=== PATIENT | male | born 1955 | race Caucasian/White ===

== ENCOUNTER 2021-05-25 09:49 | Outpatient (REF) | payer OTHER, SELFPAY ==
[2021-05-25 12:01] LABS: PSA,Total (Free>4and<10) 5.46 ng/mL (0.00-4.00)
[2021-05-26 13:21] LABS: Free Prostate Spec Ag 1.2 ng/mL; Percent Free Prostate Spec Ag 26 % (calc) (>25); Prostate Specific Ag Total 4.6 ng/mL (< OR = 4.0)
== END 2021-05-25 09:50 | disposition home or self-care (01) ==
LOC: HO.LAB 09:49
PROVIDERS: PCP Nurse Practitioner Family; Visit Provider Urology
DX: Z12.5 Encounter for screening for malignant neoplasm of prostate (principal); R97.20 Elevated prostate specific antigen [PSA]
CPT/HCPCS: 36415; 84153; 84154

== ENCOUNTER → 2021-05-27 09:29 | Outpatient (BNVA) | payer OTHER, SELFPAY | PROVIDERS: Visit Provider Urology ==

== ENCOUNTER → 2021-08-11 12:57 | Outpatient (BNVA) | payer OTHER, SELFPAY | PROVIDERS: Visit Provider Urology | DX: N48.6 Induration penis plastica (principal); R97.20 Elevated prostate specific antigen [PSA]; N40.1 Benign prostatic hyperplasia with lower urinary tract symptoms; N13.8 Other obstructive and reflux uropathy | CPT/HCPCS: 51798; 99212 ==

== ENCOUNTER 2021-11-22 13:46 | Outpatient (REF) | payer OTHER, SELFPAY ==
[2021-11-22 16:07] LABS: PSA,Total (Free>4and<10) 2.76 ng/mL (0.00-4.00)
== END 2021-11-22 13:47 | disposition home or self-care (01) ==
LOC: HO.LAB 13:46
PROVIDERS: Visit Provider Urology
DX: N40.1 Benign prostatic hyperplasia with lower urinary tract symptoms (principal); N13.8 Other obstructive and reflux uropathy; Z12.5 Encounter for screening for malignant neoplasm of prostate
CPT/HCPCS: 36415; 84153

== ENCOUNTER → 2021-11-24 09:35 | Outpatient (BNVA) | payer OTHER, SELFPAY | PROVIDERS: PCP Nurse Practitioner Family; Visit Provider Urology ==

== ENCOUNTER 2022-02-16 14:12 | Outpatient (REF) | payer OTHER, SELFPAY ==
[2022-02-16 16:09] LABS: PSA,Total (Free>4and<10) 1.98 ng/mL (0.00-4.00)
== END 2022-02-16 14:13 | disposition home or self-care (01) ==
LOC: HO.LAB 14:12
PROVIDERS: PCP Nurse Practitioner Family; Visit Provider Urology
DX: N13.8 Other obstructive and reflux uropathy (principal); N40.1 Benign prostatic hyperplasia with lower urinary tract symptoms; Z12.5 Encounter for screening for malignant neoplasm of prostate
CPT/HCPCS: 36415; 84153

== ENCOUNTER → 2022-02-23 11:23 | Outpatient (BNVA) | payer OTHER, SELFPAY | PROVIDERS: PCP Nurse Practitioner Family; Visit Provider Urology | DX: N40.1 Benign prostatic hyperplasia with lower urinary tract symptoms (principal); N13.8 Other obstructive and reflux uropathy; R97.20 Elevated prostate specific antigen [PSA]; Z79.899 Other long term (current) drug therapy | CPT/HCPCS: 51798; 99212 ==

== ENCOUNTER 2022-05-22 10:59 | Outpatient (REF) | payer OTHER, SELFPAY ==
--- NOTE | ~2022-05-22 | US_ITS ---
EXAMINATION: US PELVIS LIMITED (BLADDER) CLINICAL INFORMATION: Poor urinary stream. COMPARISON: None TECHNIQUE: Real-time imaging of the bladder. FINDINGS: BLADDER: Bladder wall appears thickened and slightly trabeculated.. Bilateral ureteral jets are demonstrated. Prevoid bladder volume is 160 mL. Postvoid bladder volume is 46.6 mL. Prostate gland is enlarged and protrudes into the base of the bladder. The prostate volume is 53.7 mL, 5.2 x 3.8 x 5.1 cm. US/US bladder IMPRESSION: Slightly thickened trabeculated bladder wall. 47 mL post void bladder residual. Enlarged prostate gland that protrudes into the base of the bladder.
[2022-05-22 12:59] LABS: Prostate Specific Antigen 1.49 ng/mL (<0.05-4.0)
== END 2022-05-22 11:00 | disposition home or self-care (01) ==
LOC: HO.US 10:59
PROVIDERS: PCP Nurse Practitioner Family; Visit Provider Urology
DX: Z12.5 Encounter for screening for malignant neoplasm of prostate (principal); N13.8 Other obstructive and reflux uropathy; N40.1 Benign prostatic hyperplasia with lower urinary tract symptoms; R97.20 Elevated prostate specific antigen [PSA]; R39.12 Poor urinary stream
CPT/HCPCS: 36415; 76857; 84153

== ENCOUNTER → 2022-05-26 14:41 | Outpatient (BNVA) | payer OTHER, SELFPAY | PROVIDERS: PCP Nurse Practitioner Family; Visit Provider Urology | DX: N48.6 Induration penis plastica (principal); R97.20 Elevated prostate specific antigen [PSA]; R79.89 Other specified abnormal findings of blood chemistry | CPT/HCPCS: 99212 ==

== ENCOUNTER 2022-06-09 09:20 | Outpatient (REF) | payer OTHER, SELFPAY ==
[2022-06-09 10:41] LABS: Ferritin 90 ng/mL (20-250); PSA,Total (Free>4and<10) 1.64 ng/mL (0.00-4.00)
[2022-06-12 07:06] LABS: Follicle Stimulating Hormone 4.3 mIU/mL (1.6-8.0); Lutenizing Hormone 3.4 mIU/mL (1.6-15.2); Prolactin 3.3 ng/mL (2.0-18.0)
[2022-06-12 10:17] LABS: Sex Hormone Binding Globulin 98 nmol/L (22-77)
[2022-06-15 13:46] LABS: Testosterone, Free 241.8 pg/mL (35.0-155.0); Testosterone, Total 987 ng/dL (250-1100)
[2022-06-16 03:06] LABS: Estradiol Ultra Sensitive 35 pg/mL (< OR = 29)
== END 2022-06-09 09:21 | disposition home or self-care (01) ==
LOC: HO.LAB 09:20
PROVIDERS: PCP Nurse Practitioner Family; Visit Provider Urology
DX: Z12.5 Encounter for screening for malignant neoplasm of prostate (principal); E29.1 Testicular hypofunction; R79.89 Other specified abnormal findings of blood chemistry; N13.8 Other obstructive and reflux uropathy; N40.1 Benign prostatic hyperplasia with lower urinary tract symptoms; E11.9 Type 2 diabetes mellitus without complications
CPT/HCPCS: 36415; 82670; 82728; 83001; 83002; 84146; 84153; 84270; 84402; 84403

== ENCOUNTER 2022-08-14 13:58 | Outpatient (REF) | payer OTHER, SELFPAY ==
--- NOTE | ~2022-08-14 | US_ITS ---
EXAMINATION: US SCROTUM CLINICAL INFORMATION: Hydrocele, unspecified. COMPARISON: None TECHNIQUE: A sonogram of the scrotum was performed assessing chacko-scale appearance and color Doppler flow. Spectral Doppler analysis of the arterial and venous flow were performed in the testes bilaterally. FINDINGS: RIGHT: Right testicle measures 5.2 x 2.7 x 3.3 cm, volume 23.7 mL. No focal testicular parenchymal lesions are visualized. Prominent rete testis. Spectral Doppler analysis of the arterial and venous flow is normal in the right testis. Partially calcified appendix testis measuring 0.8 x 1.2 cm. Right epididymal head is normal in size. Small right hydrocele. No right varicocele is seen. Right epididymal Doppler flow is normal. LEFT: Left testicle measures 4.6 x 2.8 x 3.3 cm, volume 22.4 mL. Small 4 x 3 x 3 mm simple cyst in the left testicle. No other focal testicular parenchymal lesions are visualized. Prominent rete testis. Spectral Doppler analysis of the arterial and venous flow is normal in the left testis. Left epididymal head is enlarged. There is a 1.4 x 1.1 x 1.3 cm left epididymal head cyst. There is a small appendix epididymis. Small left hydrocele. No left varicocele is seen. Left epididymal Doppler flow is normal. US/US scrotum IMPRESSION: Small bilateral hydroceles. 0.8 x 1.2 cm partially calcified right appendix testis. 1.4 cm left epididymal head cyst. Small 3 x 4 mm left testicular cyst.
== END 2022-08-14 13:59 | disposition home or self-care (01) ==
LOC: HO.US 13:58
PROVIDERS: Visit Provider Urology
DX: N43.3 Hydrocele, unspecified (principal); R79.89 Other specified abnormal findings of blood chemistry
CPT/HCPCS: 76870

== ENCOUNTER 2022-08-15 10:05 | Outpatient (REF) | payer OTHER, SELFPAY ==
[2022-08-17 08:03] LABS: HCG Tumor Marker <3 mIU/mL (<5)
== END 2022-08-15 10:06 | disposition home or self-care (01) ==
LOC: HO.LAB 10:05
PROVIDERS: Visit Provider Urology
DX: R79.89 Other specified abnormal findings of blood chemistry (principal)
CPT/HCPCS: 36415; 82105; 84702

== ENCOUNTER 2022-10-30 11:02 | Outpatient (REF) | payer OTHER, SELFPAY ==
[2022-10-30 12:32] LABS: Blood Urea Nitrogen 18 mg/dL (9-16); Estimated Glomerular Filt Rate > 60
[2022-11-03 21:58] LABS: Estradiol Ultra Sensitive 30 pg/mL (< OR = 29)
[2022-11-07 11:24] LABS: Follicle Stimulating Hormone 4.2 mIU/mL (1.6-8.0); Lutenizing Hormone 2.2 mIU/mL (1.6-15.2); Sex Hormone Binding Globulin 93 nmol/L (22-77); Testosterone, Free 50.7 pg/mL (35.0-155.0); Testosterone, Total 757 ng/dL (250-1100)
== END 2022-10-30 11:03 | disposition home or self-care (01) ==
LOC: HO.LAB 11:02
PROVIDERS: Visit Provider Urology
DX: R79.89 Other specified abnormal findings of blood chemistry (principal)
CPT/HCPCS: 36415; 82565; 82670; 83001; 83002; 84270; 84402; 84403; 84520

== ENCOUNTER 2022-11-10 08:23 | Outpatient (REF) | payer OTHER, SELFPAY ==
--- NOTE | ~2022-11-10 | CT_ITS ---
EXAMINATION: CT ABDOMEN WITHOUT AND WITH CONTRAST CLINICAL INFORMATION: Elevated testosterone. COMPARISON: None TECHNIQUE: Contiguous axial thin section helical images of the abdomen were performed before and after the administration of oral contrast and 85 mL of Omnipaque 350 intravenous contrast. The data set was reformatted in the coronal and sagittal planes and reviewed on an independent workstation. This CT examination was performed using dose optimization techniques as appropriate, variously including the following: *Automated exposure control *Adjustment of mA and/or kV according to patient size (this includes techniques or standardized protocols for targeted exams where dose is matched to indication/reason for exam; i.e. extremities or head) *Use of iterative reconstruction technique DLP: 305 mGy-cm FINDINGS: LUNG BASES: Clear LIVER, GALLBLADDER, AND BILIARY TREE: Mild hypoattenuation of liver parenchyma likely reflects hepatic steatosis. Right inferior hepatic lobe subcentimeter hypoattenuating lesion is too small to characterize. Gallbladder is unremarkable. PANCREAS: Unremarkable SPLEEN: Unremarkable. ADRENAL GLANDS AND KIDNEYS: Hyperplasia of the left adrenal gland with a medial left adrenal gland nodule measuring 2.4 x 1.5 cm demonstrating washout characteristics consistent with an adenoma. Right adrenal gland is unremarkable. Extrarenal pelvis on the left side versus partially visualized hydroureter BOWEL LOOPS: Visualized portions of the small and large bowel are unremarkable. LYMPH NODES: Normal. VASCULAR: Unremarkable. BONES: Unremarkable CT/CT abdomen wo/w IV con IMPRESSION: 1. 2.4 cm left adrenal gland nodule demonstrating washout characteristics consistent with an adenoma. 2. Extrarenal pelvis on the left side versus partially visualized hydroureter. Fleischner guidelines were followed.
[2022-11-10] MEDS: iohexoL 350 MG/ML 100 ML INFUS..BTL IV (09:17)
== END 2022-11-10 08:24 | disposition home or self-care (01) ==
LOC: HO.CT 08:23
PROVIDERS: Visit Provider Urology
DX: R79.89 Other specified abnormal findings of blood chemistry (principal)
CPT/HCPCS: 74170; Q9967

== ENCOUNTER → 2022-11-22 14:16 | Outpatient (BNVA) | payer OTHER, SELFPAY | PROVIDERS: PCP Family Medicine; Visit Provider Urology | DX: N40.1 Benign prostatic hyperplasia with lower urinary tract symptoms (principal); N13.8 Other obstructive and reflux uropathy; R97.20 Elevated prostate specific antigen [PSA]; N48.6 Induration penis plastica; R79.89 Other specified abnormal findings of blood chemistry | CPT/HCPCS: 99212 ==

== ENCOUNTER 2023-05-03 08:32 | Outpatient (REF) | payer OTHER, SELFPAY ==
[2023-05-22 09:15] LABS: Testosterone, Total 922
[2023-05-22 09:16] LABS: Testosterone, Free 75.6
== END 2023-05-03 08:33 | disposition home or self-care (01) ==
LOC: HO.LAB 08:32
PROVIDERS: Visit Provider Urology
DX: R79.89 Other specified abnormal findings of blood chemistry (principal)
CPT/HCPCS: 36415; 84270; 84402; 84403

== ENCOUNTER 2023-05-23 10:23 | Outpatient (AMB) | payer OTHER, SELFPAY ==
--- NOTE | 2023-05-23 10:37 | MHC.OFFVIS ---
Intake Intake Visit Reasons: 6m/labs(set) Intake Note: Patient is present for Follow Up LABS Urology Med: Finasteride, Terazosin Antibiotic Allergy: None Blood Thinner: None Pharmacy: [facility] Allergies No Known Allergies [No Known Allergies*] Allergy (Verified 05/23/23 10:39) HPI HPI Comments History of Present Illness Details Shun is a pleasant male. He is a patient of Dr. Gonzalez. Seen for the following urologic conditions - BPH with elevated PSA - Peyronie's disease Discussed lab work with normal free T but elevated sex hormone binding globulin Dr Chacko [place] [facility] Free testosterone within normal range SHBG remains elevated - background of daily marijuana use with low-dose antipsychotics Stable borderline urinary performance Considering laser prostatectomy Discussed uro lift Hypergonadism Labs - 06/15 T 987 Free 241, FSH 4.3 LH 3.4 SHBG 98, estradiol 35, prolactin 35 - 08/15 Tumor Markers normal range - 11/16 T 757 Free 50 P 1.64 FSH 4.2 SHBG 93 Estradiol 30 - 05/16 922 F 75, SHBG 98, Imaging - 07/15 scrotal ultrasound normal no evidence of lesion BPH with elevated PSA Follow-up evaluation today for further evaluation of lower urinary tract symptoms Primary symptoms had been nocturia with weakness of stream Good response to terazosin 10mg and finasteride Progression of symptoms PSA historically variable between 3.2 and 4.4 - 05/14 4.6, 06/14 4.6, 12/13 2.8, 02/12 1.9, 05/15 1.5 Review in 12 months Peyronie's disease Stable Does not interfere with intercourse Has concerns about progression May benefit from antioxidant therapy pentoxifylline and vitamin-E [facility] Medical History Benign prostatic hyperplasia with lower urinary tract symptoms Elevated PSA Peyronie's disease Review of Systems Const Denies chills and Denies fever(s) Card Reports no additional complaints and Denies syncope Resp Denies cough GI Denies abdominal pain and Denies heartburn Reports as per HPI and Denies change in libido Neuro Denies syncope Psych Denies change in libido Endo Denies change in libido Physical Exam Const General: cooperative, healthy appearing, comfortable and no acute distress Orientation/consciousness: patient oriented x3 HEENT Face and sinus: Yes normal facial exam Mouth: moist mucous membranes Neck Neck: Yes normal visual inspection, Yes full ROM and Yes trachea midline Chest Chest palpation & inspection: normal inspection of the chest Resp Effort & Inspection: normal respiratory effort, able to speak in complete sentences and no respiratory distress GI Inspection: Yes normal to inspection Back/Spine/Pelvis Cervical Spine: normal cervical lordosis Thoracic/Lumbar Spine: thoracic and lumbar spine normal to inspection Skin General skin exam: no rashes or lesions noted Neuro General: patient oriented x3, gait normal, tone normal and moves all extremities Extrem General: Yes normal to inspection and Yes capillary refill normal Assessment & Plan Assessment & Plan (1) Peyronie's disease: Code(s): N48.6 - Induration penis plastica (2) BPH w urinary obs/LUTS: Code(s): N40.1 - Benign prostatic hyperplasia with lower urinary tract symptoms; N13.8 - Other obstructive and reflux uropathy Plan Six month follow-up PVR Patient Instructions: Imaging studies, laboratory and physical exam results were discussed and reviewed in detail. No major barriers to patient understanding were identified. An opportunity to ask questions regarding the treatment plan was provided. All questions were answered. The patient expressed understanding and agreement with the above treatment plan. The patient is aware they should contact our office by phone for worsening of their current condition or the appearance of new urologic symptoms. Compliance is encouraged with any medications and followup testing that is ordered. It is a privilege to participate in the urologic care of your patient. If you have any questions or concerns regarding treatment for the above conditions, or other urologic issues, please do not hesitate to contact me. The office telephone contact is [phone]. This note is constructed using voice recognition software. While every effort has been made to ensure accuracy carry out clerk and shelf stocker errors may have been included. Yours sincerely, Dr Hugo Mccoy MD, [facility] - Urology Providers of Expert, Compassionate Care for the Genitourinary System Coding Level of Care Code Est Pt Level 3 (17318) Diagnoses Peyronie's disease N48.6 BPH w urinary obs/LUTS N40.1; N13.8
== END 2023-05-23 10:49 | disposition home or self-care (01) ==
PROVIDERS: PCP Family Medicine; Visit Provider Urology
DX: N48.6 Induration penis plastica (principal); N40.1 Benign prostatic hyperplasia with lower urinary tract symptoms; N13.8 Other obstructive and reflux uropathy
CPT/HCPCS: 99213

== ENCOUNTER → 2023-05-23 10:23 | Outpatient (BNVA) | payer OTHER, SELFPAY | PROVIDERS: Visit Provider Urology | DX: N48.6 Induration penis plastica (principal); N40.1 Benign prostatic hyperplasia with lower urinary tract symptoms; N13.8 Other obstructive and reflux uropathy | CPT/HCPCS: 99212 ==

== ENCOUNTER 2023-11-23 10:43 | Outpatient (AMB) | payer OTHER, SELFPAY ==
--- NOTE | 2023-11-23 10:48 | A.OFFVIS_ITS ---
Intake Intake Visit Reasons: 6m/PVR (vm to confirm ) Intake Note: Patient presents today for a follow-up Meds- Finasteride, Terazosin Allergies to Antibiotic- No Known Allergies Blood Thinner- None Patient stated he takes Sertraline and other medications however, there is no record of those medications and he does not know the dose of the Sertraline. Post Void Residual: 124ml Watchguard Required: No Accompanied by: Self / Same As Patient Allergies No Known Allergies [No Known Allergies*] Allergy (Verified 11/23/23 10:58) Medication List - Last Reconciled 11/23/23 by Hugo Mccoy MD finasteride 5 mg PO DAILY 90 days mirtazapine 15 mg PO DAILY terazosin 10 mg PO BEDTIME 90 days vitamin E (dl, acetate) 450 mg PO DAILY 90 days HPI HPI Comments History of Present Illness Details Shun is a pleasant male. He is a patient of Dr. Chanda Pierre. Seen for the following urologic conditions - BPH with elevated PSA - Peyronie's disease PVR 124 Known enlarged prostate Would like to proceed with GreenLight procedure at January Dr Chacko [place] [facility] Free testosterone within normal range SHBG remains elevated - background of daily marijuana use with low-dose antipsychotics Stable borderline urinary performance Considering laser prostatectomy Prior Discussed uro lift [facility]gonad[facility] Labs - 06/15 T 987 Free 241, FSH 4.3 LH 3.4 SH BG 98, estradiol 35, prolactin 35 - 08/15 Tumor Markers normal range - 11/16 T 757 Free 50 P 1.64 FSH 4.2 SHBG 93 Estradiol 30 - 05/16 922 F 75, SHBG 98, Imaging - 07/15 scrotal ultrasound normal no kaylene dence of lesion BPH with elevated PSA Follow-up evaluation today for further evaluation of lower urinary tract symptoms Primary symptoms had been nocturia with weakness of stream Good response to terazosin 10mg and finasteride Progression of symptoms PSA historically variable between 3.2 and 4.4 - 05/14 4.6, 06/14 4.6, 12/13 2.8, 02/12 1.9 , 05/15 1.5 Bladder ultrasound prostate 55 g Peyronie's disease Stable Does not interfere with intercourse Has concerns about progression May benefit from antioxidant therapy pentoxifylline and vitamin-E [facility] Medical History Benign prostatic hyperplasia with lower urinary tract symptoms Peyronie's disease Elevated PSA Review of Systems Const Denies chills and Denies fever(s) Card Reports no additional complaints and Denies syncope Resp Denies cough GI Denies abdominal pain and Denies heartburn Reports as per HPI and Denies change in libido Neuro Denies syncope Psych Denies change in libido Endo Denies change in libido Physical Exam Const General: cooperative, healthy appearing, comfortable and no acute distress Orientation/consciousness: patient oriented x3 HEENT Face and sinus: Yes normal facial exam Mouth: moist mucous membranes Neck Neck: Yes normal visual inspection, Yes full ROM and Yes trachea midline Chest Chest palpation & inspection: normal inspection of the chest Resp Effort & Inspection: normal respiratory effort, able to speak in complete sentences and no respiratory distress GI Inspection: Yes normal to inspection Back/Spine/Pelvis Cervical Spine: normal cervical lordosis Thoracic/Lumbar Spine: thoracic and lumbar spine normal to inspection Skin General skin exam: no rashes or lesions noted Neuro General: patient oriented x3, gait normal, tone normal and moves all extremities Extrem General: Yes normal to inspection and Yes capillary refill normal Office Procedures Post Void Residual Post Residual Void Post Void Residual (PVR): 124 [id number]-Qmjm Void Residual by ultrasound Assessment & Plan Assessment & Plan (1) Peyronie's disease: Code(s): N48.6 - Induration penis plastica (2) Elevated PSA: Code(s): R97.20 - Elevated prostate specific antigen [PSA] (3) BPH w urinary obs/LUTS: Code(s): N40.1 - Benign prostatic hyperplasia with lower urinary tract symptoms; N13.8 - Other obstructive and reflux uropathy (4) Elevated testosterone level: Code(s): R79.89 - Other specified abnormal findings of blood chemistry Plan Risks, benefits and alternatives to therapy were discussed. These include but are not limited to infection, bleeding, damage to local organs and tissues, need for further interventions. Anesthetic risks regarding cardiac arrhythmia, blood clots, and potential mortality were discussed. The patient understands the typical recovery time and the outpatient nature of the procedure. After consideration of these risks the patient gives full informed consent and they wish to move ahead with the procedure. Lab work today GreenLight laser Orders: Orders AMB Post Void Residual by ultrasound Today R33.9 - Retention of urine, unspecified Testosterone, Free/Total Today R68.82 - Decreased libido, R79.89 - Other specified abnormal findings of blood chemistry Sex Hormone Binding Globulin Today R68.82 - Decreased libido, R79.89 - Other specified abnormal findings of blood chemistry Estradiol Ultra Sensitive Today E29.1 - Testicular hypofunction, R79.89 - Other specified abnormal findings of blood chemistry Medications: Refilled finasteride 5 mg PO DAILY 90 days 90 tabs 1RF N13.8 - Other obstructive and reflux uropathy, N40.1 - Benign prostatic hyperplasia with lower urinary tract symptoms, R33.9 - Retention of urine, unspecified terazosin mail to vet 10 mg PO BEDTIME 90 days 90 caps 3RF N13.8 - Other obstructive and reflux uropathy, N40.1 - Benign prostatic hyperplasia with lower urinary tract symptoms Patient Instructions: Imaging studies, laboratory and physical exam results were discussed and reviewed in detail. No major barriers to patient understanding were identified. An opportunity to ask questions regarding the treatment plan was provided. All questions were answered. The patient expressed understanding and agreement with the above treatment plan. The patient is aware they should contact our office by phone for worsening of their current condition or the appearance of new urologic symptoms. Compliance is encouraged with any medications and followup testing that is ordered. It is a privilege to participate in the urologic care of your patient. If you have any questions or concerns regarding treatment for the above conditions, or other urologic issues, please do not hesitate to contact me. The office telephone contact is [phone]. This note is constructed using voice recognition software. While every effort has been made to ensure accuracy remote sensing analyst errors may have been included. Yours sincerely, Dr Hugo Mccoy MD, [facility] - Urology Providers of Expert, Compassionate Care for the Genitourinary System Coding Level of Care Code Est Pt Level 4 (92918) Diagnoses Peyronie's disease N48.6 Elevated PSA R97.20 BPH w urinary obs/LUTS N40.1; N13.8 Elevated testosterone level R79.89 CPT Codes Post Residual Void - PVR CPT Code: 14739-Fduz Void Residual by ultrasound ([id number])
== END 2023-11-23 11:23 | disposition home or self-care (01) ==
PROVIDERS: PCP Family Medicine; Referring Provider Family Medicine; Visit Provider Urology
DX: R97.20 Elevated prostate specific antigen [PSA] (principal); N40.1 Benign prostatic hyperplasia with lower urinary tract symptoms; N13.8 Other obstructive and reflux uropathy; R79.89 Other specified abnormal findings of blood chemistry
CPT/HCPCS: 99214

== ENCOUNTER → 2023-11-23 10:43 | Outpatient (BNVA) | payer OTHER, SELFPAY | PROVIDERS: PCP Family Medicine; Visit Provider Urology ==

== ENCOUNTER 2023-11-23 11:32 | Outpatient (REF) | payer OTHER, SELFPAY ==
[2023-11-25 12:04] LABS: Sex Hormone Binding Globulin 86 nmol/L (22-77)
[2023-11-28 14:34] LABS: Testosterone, Free 48.7 pg/mL (35.0-155.0); Testosterone, Total 601 ng/dL (250-1100)
[2023-11-30 01:44] LABS: Estradiol Ultra Sensitive 40 pg/mL (< OR = 29)
== END 2023-11-23 11:33 | disposition home or self-care (01) ==
LOC: HO.10HDL 11:32
PROVIDERS: Visit Provider Urology
DX: R68.82 Decreased libido (principal); R79.89 Other specified abnormal findings of blood chemistry; N48.6 Induration penis plastica; R97.20 Elevated prostate specific antigen [PSA]; N40.1 Benign prostatic hyperplasia with lower urinary tract symptoms; N13.8 Other obstructive and reflux uropathy; E29.1 Testicular hypofunction; Z79.899 Other long term (current) drug therapy
CPT/HCPCS: 36415; 51798; 82670; 84270; 84402; 84403; 99212

== ENCOUNTER 2024-02-29 13:52 | Outpatient (AMB) | payer OTHER, SELFPAY ==
--- NOTE | 2024-02-29 13:53 | A.OFFVIS_ITS ---
Intake Visit Reasons: H&P Greenlight Intake Note: Patient is Present for Telephone Follow Up Urology Med: Finasteride, Vitamin E, Terazosin Antibiotic Allergy: None Blood Thinner: None Allergies paroxetine [From Paxil] Adverse Reaction (Verified 04/16/24 15:20) Unknown HPI Comments Details: Shun is a pleasant male. He is a patient of Dr. Gonzalez. Seen for the following urologic conditions - BPH with elevated PSA - Peyronie's disease Telemedicine Evaluation 15 min Consultation [employer] Chaitanya Video PVR 124 Known enlarged prostate Would like to proceed with GreenLight procedure at January Dr Chacko [place] [facility] Free testosterone within normal range SHBG remains elevated - background of daily marijuana use with low-dose antipsychotics Stable borderline urinary performance Considering laser prostatectomy Prior Discussed uro lift [facility] Labs - 06/15 T 987 Free 241, FSH 4.3 LH 3.4 SHBG 98, estradiol 35, prolactin 35 - 08/15 Tumor Markers normal range - 11/16 T 757 Free 50 P 1.64 FSH 4.2 SHBG 93 Estradiol 30 - 05/16 922 F 75, SHBG 98, Imaging - 07/15 scrotal ultrasound normal no evidence of lesion BPH with elevated PSA Follow-up evaluation today for further evaluation of lower urinary tract symptoms Primary symptoms had been nocturia with weakness of stream Good response to terazosin 10mg and finasteride Progression of symptoms PSA historically variable between 3.2 and 4.4 - 05/14 4.6, 06/14 4.6, 12/13 2.8, 02/12 1.9, 05/15 1.5 Bladder ultrasound prostate 55 g Peyronie's disease Stable Does not interfere with intercourse Has concerns about progression May benefit from antioxidant therapy pentoxifylline and vitamin-E [facility] Medical History Depression Spinal stenosis DJD (degenerative joint disease) Benign prostatic hyperplasia with lower urinary tract symptoms Peyronie's disease Elevated PSA Surgical History (Updated 03/10/24 @ 07:17 by Yoanna Pedroza RN) Hx of tonsillectomy Hx of arthroscopic knee surgery History of carpal tunnel release of both wrists H/O colonoscopy Social History (Updated 03/06/24 @ 10:15 by Cristina Hameed RN) Patient Tobacco Use Status: Former Tobacco user Substance Use Type: Marijuana Review of Systems Const All systems reviewed & are unremarkable except as noted in HPI and below Reports no additional complaints Resp Reports no additional complaints GI Reports no additional complaints Reports as per HPI Musc Reports no additional complaints Physical Exam Telemedicine evaluation Appropriate responses Regular breathing rate and rhythm HEENT Head: Yes normal to inspection Ears: hearing grossly normal bilaterally Eyes General: appearance normal, both eyes and all related structures Neck Neck: Yes normal visual inspection Chest Chest palpation & inspection: normal inspection of the chest Resp Effort & Inspection: normal respiratory effort and able to speak in complete sentences Telehealth Telehealth Telehealth Platform: [employer] Location of provider rendering services: practice address Location of patient: address on file Patient Identification confirmed using: Name, : Yes Telehealth method: video Patient verbally consented to treatment: Yes Patient verbally consented to billing insurance company: Yes Patient informed of any privacy concerns related to visit: Yes Minutes spent on Phone/Video with Pt.: 15 Assessment & Plan Assessment & Plan (1) Elevated PSA: Code(s): R97.20 - Elevated prostate specific antigen [PSA] Category: Medical (2) BPH w urinary obs/LUTS: Code(s): N40.1 - Benign prostatic hyperplasia with lower urinary tract symptoms; N13.8 - Other obstructive and reflux uropathy Category: Medical Plan Risks, benefits and alternatives to therapy were discussed. These include but are not limited to infection, bleeding, damage to local organs and tissues, need for further interventions. Anesthetic risks regarding cardiac arrhythmia, blood clots, and potential mortality were discussed. The patient understands the typical recovery time and the outpatient nature of the procedure. After consideration of these risks the patient gives full inform ed consent and they wish to move ahead with the procedure. greenlight laser Patient Instructions: Imaging studies, laboratory and physical exam results were discussed and reviewed in detail. No major barriers to patient understanding were identified. An opportunity to ask questions regarding the treatment plan was provided. All questions were answered. The patient expressed understanding and agreement with the above treatment plan. The patient is aware they should contact our office by phone for worsening of their current condition or the appearance of new urologic symptoms. Compliance is encouraged with any medications and followup testing that is ordered. It is a privilege to participate in the urologic care of your patient. If you have any questions or concerns regarding treatment for the above conditions, or other urologic issues, please do not hesitate to contact me. The office telephone contact is [phone]. This note is constructed using voice recognition software. While every effort has been made to ensure accuracy excel analyst errors may have been included. Yours sincerely, Dr Hugo Mccoy MD, [facility] - Urology Providers of Expert, Compassionate Care for the Genitourinary System Coding Level of Care Code Tele Est Pt Level 3 (41558) Diagnoses Elevated PSA R97.20 BPH w urinary obs/LUTS N40.1; N13.8
== END 2024-02-29 14:00 | disposition left against medical advice (07) ==
LOC: HO.HUSH 13:52
PROVIDERS: PCP Family Medicine; Visit Provider Urology
DX: R97.20 Elevated prostate specific antigen [PSA] (principal); N40.1 Benign prostatic hyperplasia with lower urinary tract symptoms; N13.8 Other obstructive and reflux uropathy
CPT/HCPCS: 99213

== ENCOUNTER → 2024-02-29 13:52 | Outpatient (BNVA) | payer OTHER, SELFPAY | PROVIDERS: PCP Family Medicine; Visit Provider Urology ==

== ENCOUNTER 2024-03-05 08:32 | Outpatient (AMB) | payer OTHER, SELFPAY ==
--- NOTE | 2024-03-05 08:34 | MHC.OFFVIS ---
Intake Visit Reasons: H&P r/s from Sunday- call [phone] Intake Note: Patient is Present for Telephone Follow Up Urology Med: Finasteride, Terazosin Antibiotic Allergy: None Blood Thinner:None Allergies No Known Allergies [No Known Allergies*] Allergy (Verified 03/05/24 08:35) HPI Comments Details: Shun is a pleasant male. He is a patient of Dr. Gonzalez. Seen for the following urologic conditions - BPH with elevated PSA - Peyronie's disease Telemedicine Evaluation 15 min Consultation I Read Books Chaitanya Video attempted Discussed GreenLight laser Risks and benefits Postoperative course Plan for procedure next week PVR 124 Known enlarged prostate Would like to proceed with GreenLight procedure [place] Chacko [place] end[facility] Free testosterone within normal range SHBG remains elevated - background of daily marijuana use with low-dose antipsychotics Hypergonadism Labs - 06/15 T 987 Free 241, FSH 4.3 LH 3.4 SHBG 98, estradiol 35, prolactin 35 - 08/15 Tumor Markers normal range - 11/16 T 757 Free 50 P 1.64 FSH 4.2 SHBG 93 Estradiol 30 - 05/16 922 F 75, SHBG 98, Imaging - 07/15 scrotal ultrasound normal no evidence of lesion BPH with elevated PSA Follow-up evaluation today for further evaluation of lower urinary tract symptoms Primary symptoms had been nocturia with weakness of stream Good response to terazosin 10mg and finasteride Progression of symptoms PSA historically variable between 3.2 and 4.4 - 05/14 4.6, 06/14 4.6, 12/13 2.8, 02/12 1.9, 05/15 1.5 Bladder ultrasound prostate 55 g Peyronie's disease Stable Does not interfere with intercourse Has concerns about progression May benefit from antioxidant therapy pentoxifylline and vitamin-E [facility] Medical History Benign prostatic hyperplasia with lower urinary tract symptoms Peyronie's disease Elevated PSA Review of Systems Const All systems reviewed & are unremarkable except as noted in HPI and below Reports no additional complaints Resp Reports no additional complaints GI Reports no additional complaints Reports as per HPI Musc Reports no additional complaints Physical Exam Telemedicine evaluation Appropriate responses Regular breathing rate and rhythm HEENT Head: Yes normal to inspection Ears: hearing grossly normal bilaterally Eyes General: appearance normal, both eyes and all related structures Neck Neck: Yes normal visual inspection Chest Chest palpation & inspection: normal inspection of the chest Resp Effort & Inspection: normal respiratory effort and able to speak in complete sentences Telehealth Telehealth Telehealth Platform: I Read [employer] Location of provider rendering services: practice address Location of patient: address on file Patient Identification confirmed using: Name, : Yes Telehealth method: video Patient verbally consented to treatment: Yes Patient verbally consented to billing insurance company: Yes Patient informed of any privacy concerns related to visit: Yes Minutes spent on Phone/Video with Pt.: 15 Assessment & Plan Assessment & Plan (1) Peyronie's disease: Code(s): N48.6 - Induration penis plastica Category: Medical (2) BPH w urinary obs/LUTS: Code(s): N40.1 - Benign prostatic hyperplasia with lower urinary tract symptoms; N13.8 - Other obstructive and reflux uropathy Category: Medical Plan We discussed the nature of the decision and reasonable options for performing a prostate intervention. Interventions include TURP, GreenLight laser enucleation of the prostate, GreenLight laser ablation of the prostate, transurethral incision of the prostate, and I-Tend prostate procedure. Options such as medical therapy were discussed. The relative uncertainties and benefits related to each alternate procedure were adequately discussed. General surgical risks including, but not limited to, pain, bleeding, infection, myocardial infarction, pulmonary embolus, deep vein thrombosis and cerebrovascular accident which may result in further hospitalization were discussed. Full disclosure of the procedure as well as all major risks, benefits and complications were discussed including but not limited to damage to the urethra or bladder neck, recurrent BPH, retrograde ejaculation, bladder infection, urge, de may frequency, incomplete emptying, dysuria, remote chance of erectile dysfunction, epididymitis, and meatal stenosis. The success rate of the procedure was discussed. Success of the procedure in the short-term does not necessarily guarantee that long-term success will be maintained. Suitable follow up will need to be maintained. The patient showed understanding of discussion. An opportunity was provided for questions to be answered and wishes to proceed with the following procedure. - green light laser Patient Instructions: Imaging studies, laboratory and physical exam results were discussed and reviewed in detail. No major barriers to patient understanding were identified. An opportunity to ask questions regarding the treatment plan was provided. All questions were answered. The patient expressed understanding and agreement with the above treatment plan. The patient is aware they should contact our office by phone for worsening of their current condition or the appearance of new urologic symptoms. Compliance is encouraged with any medications and followup testing that is ordered. It is a privilege to participate in the urologic care of your patient. If you have any questions or concerns regarding treatment for the above conditions, or other urologic issues, please do not hesitate to contact me. The office telephone contact is [phone]. This note is constructed using voice recognition software. While every effort has been made to ensure accuracy waterway traffic checker errors may have been included. Yours sincerely, Dr Hugo Mccoy MD, [facility] - Urology Providers of Expert, Compassionate Care for the Genitourinary System Coding Level of Care Code Tele Est Pt Level 3 (90476) Diagnoses Peyronie's disease N48.6 BPH w urinary obs/LUTS N40.1; N13.8
== END 2024-03-05 09:19 | disposition home or self-care (01) ==
LOC: HO.HUSH 08:32
PROVIDERS: PCP Family Medicine; Visit Provider Urology
DX: N48.6 Induration penis plastica (principal); N40.1 Benign prostatic hyperplasia with lower urinary tract symptoms; N13.8 Other obstructive and reflux uropathy
CPT/HCPCS: 99213

== ENCOUNTER → 2024-03-05 08:32 | Outpatient (BNVA) | payer OTHER, SELFPAY | PROVIDERS: PCP Family Medicine; Visit Provider Urology ==

== ENCOUNTER 2024-03-10 05:58 | Day surgery (SDC) | payer OTHER, SELFPAY ==
[2024-03-10] VITALS (9 sets, daily range): BP systolic 140–196; BP diastolic 65–130; PULSE 59–104; RESP 16–22; TEMP 36.1–36.7; O2SAT 96–100; BMI 24.8
--- NOTE | 2024-03-10 07:14 | P.HPSUR_ITS ---
Pre-Procedural Eval Section A - 24 Hr Update-Section A only Date of Service: 03/10/24 The patient is an INPATIENT: No Changes since office visit: No Cold of Flu in the past 2 weeks, No New Medical Problems, No Changes in Medication and No Patient answered all questions The patient has been examined within 24 hours of the surgical procedure. The History & Physical has been completed within 30 days and I have reviewed it.: Yes Section B - Complete if H&P > 30 days Chief Complaint: Benign prostatic hyperplasia with lower urinary tr Allergies: Allergies Allergy/AdvReac Type Severity Reaction Status Date / Time paroxetine [From Paxil] AdvReac Unknown Verified 03/10/24 06:40 Review of Systems Sugical H&P ROS: Negative: Constitution, Cardiovascular, Respiratory, Neurological, Psychiatric, Hem-Onc, Allergic/Immunologic, Gastrointestinal, Genitourinary, Musculoskeletal, Integumentary, Endocrine and Eyes/ Ears/Nose/Throat Exam Surgical H&P Exam: Normal: HEENT, Normal: Heart, Normal: Lungs, Normal: Extremities, Normal: Abdomen, Normal: Skin and Normal: Neurological Plan Diagnosis/Plan: Unchanged (Prostate 55gm) I have reviewed the history and physical and performed a pertinent physical examination on my patient. No changes have occurred unless specified. Time Spent With Patient Time: Total time managing care of this patient today ____ minutes.
[2024-03-10] MEDS: Lactated Ringers 1,000 ML 80 ML IVCONT (07:15)
--- NOTE | 2024-03-10 07:15 | HO.ANESPROP2 ---
HPI - Anesthesia Eval Consult details Narrative: for laser prostate PMFSH Active Problems Active Problems: All Active Problems Elevated testosterone level (Acute) Peyronie's disease (Acute) Elevated PSA (Acute) BPH w urinary obs/LUTS (Acute) Past Medical History Medical History Depression Spinal stenosis DJD (degenerative joint disease) Benign prostatic hyperplasia with lower urinary tract symptoms Peyronie's disease Elevated PSA Family History Family history of problems with anesthesia: No Surgical History Surgical History (Updated 03/10/24 @ 07:17 by Yoanna Pedroza, RN) Hx of tonsillectomy Hx of arthroscopic knee surgery History of carpal tunnel release of both wrists H/O colonoscopy History of Problems with Anesthesia: No Social History Social History (Updated 03/06/24 @ 10:15 by Cristina Hameed RN) Patient Tobacco Use Status: Former Tobacco user Substance Use Type: Marijuana Substance Use Frequency: Daily Are you DNR?: No Advance Directives: No Advance Directives Information Provided: Yes Nutrition Risks: No Nutritional Risk Meds Allergies Allergy/AdvReac Type Severity Reaction Status Date / Time paroxetine [From Paxil] AdvReac Unknown Verified 03/10/24 06:40 Active Medications: Current Medications Lactated Ringer's (Lr) 1,000 mls @ 80 mls/hr IVCONT .[id number] CORI Last Admin: 03/10/24 07:15 Dose: 80 mls/hr Levofloxacin (Levaquin) 500 mg in 100 mls @ 100 mls/hr IV PREOP ONE Stop: 03/10/24 08:12 Home Medications ?Medication ?Instructions ?Recorded ?Confirmed ?Last Taken ?Type mirtazapine 15 mg tablet 15 mg PO BEDTIME 11/23/23 03/06/24 Unknown History bupropion HCl 300 mg 03/10/24 Unknown History losartan 50 mg 03/10/24 Unknown History melatonin 10 mg 03/10/24 Unknown History Exam Height,Weight and Vital Signs: Height 5 ft 10 in Weight 78.29 kg Last Vital Signs Temp 98.1 F 03/10/24 06:37 Pulse 59 03/10/24 06:37 Resp 18 03/10/24 06:37 BP 141/65 H 03/10/24 06:37 Pulse Ox 97 03/10/24 06:37 O2 Del Method Room Air 03/10/24 06:37 Airway Mallampati Class: I TM Dist: >3cm Neck ROM: Full Loose/Missing/Broken Teeth: No Heart: ok Lungs: ok Assessment and Plan Assessment Anesthesia Assessment: Anesthesia Plan Discussed and Chart Reviewed Final Anesthetic Review Family History of Problems with Anesthesia: No History of Problems with Anesthesia: No NPO: Yes ASA Class: II Final Preanesthetic Review: No Changes in Pt Med Stat, Meds/Allgs Chart Reviewed, Consent Obtained/Reviewed and Anes Risks/Benef Reviewed Patient Risk: Low Procedure Risk: Low Anesthetic Plan Anesthetic Plan: GA and Agree w/ Assess. and Plan Disposition: Standard PACU
[2024-03-10] MEDS: Acetaminophen 325 MG TABLET 975 MG PO (09:19)
[2024-03-10] MEDS: oxyCODONE HCl Immed Release 5 MG TABLET PO (09:20)
[2024-03-10] MEDS: fentaNYL citrate/PF 100 MCG/2 ML VIAL 50 MCG IVPUSH ×2 (09:32→09:40)
--- NOTE | 2024-03-10 10:08 | W.PM.OPN ---
Operative Note Operative Note Date of Service: 03/10/24 Narrative: PreOperative Diagnosis: Bladder outlet obstruction Post Operative Diagnosis: Bladder outlet obstruction Procedure: GreenLight Laser Enucleation of the prostate CPT 50552 Surgeon: Dr Hugo Mccoy Anesthesia: General History of bladder outlet obstruction. Treated with alpha-marcin and other medications. Still with symptoms. On cystoscopy in office has tight bladder neck. Recommendation for prostate procedure with laser enucleation of prostate. 55 g on bladder ultrasound Risks and benefits have been discussed. Focus was placed on development of retrograde ejaculation which is a normal part of this procedure. Procedure: After informed consent was verified the patient was brought to the operating room and placed in a supine position. Anesthesia was administered per protocol. Patient was placed in modified dorsal lithotomy position and prepped and draped in a sterile fashion. Safety pause time-out was confirmed. Antibiotics have been given. A Twenty-four Malaysian laser cystoscope was inserted per urethra. No abnormalities were found of the anterior and bulbar urethra. The prostatic urethra shows tight bladder neck The bladder was examined and both ureteric orifices were seen in their normal positions away from the area of interest. Bladder trabeculation grade 2 with cellules and glomerulations. Using a GreenLight laser with settings of 80 montesinos incisions were made at the 5 and 7 o'clock position. The incisions were taken down from the bladder neck down to the level of the veru. These were gradually deepened in order to define the lateral aspects of the median lobe area. Once clearly defined they will also extended in the lateral directions in order to create a deep groove. - dense prostate tissue The median lobe was then ablated and enucleated tissue released into the bladder with the laser power increased to 120 W. Once the median lobe area had been cleared attention was directed to the lateral lobes. Starting with the patient's left lateral lobe. First the 05:00 o'clock groove was further developed. This was moved in the lateral direction to undermine the tissue on the lateral side running from the bladder neck to the prostate apex. The ureteric orifice was used to guide incisions. Focus was then placed on the laser at the 1 o'clock position to developing a secondary groove down to the level of bladder fibers. The creation of a second deep groove defined a segment of intervening tissue similar to a slice of orange. At the apex of the prostate the 2 grooves were linked the us releasing the intervening tissue. This tissue was then removed with a combination of enucleation and ablation working from the apex toward the bladder neck. A similar procedure was repeated on the patient's right-hand side. The only differences being the position of the lateral groove at he 7 o'clock position and the secondary groove at the 11 o'clock position, Otherwise the procedure was developed in a mirror fashion. After the majority of tissue had been debulked remnant tissue was ablated with the side fire laser and the curve of the prostate followed up each side wall clearly defining the anterior remnant strip that remained between the 11 and 1 o'clock positions. When this was had been completed debris and pieces of prostate were removed from the bladder with irrigation. Both ureteric orifices were reviewed again in shown to be patent in away from any areas of energy damage. The apical area was reviewed in any stray ooze was controlled. A 22 Malaysian 30 cc balloon Engel catheter was placed over a stylet into the bladder. Clear efflux was obtained upopn irrigation with a Emmanuelle piston syringe. 30 cc cc was placed in the balloon and gentle traction was placed. A snap was used to hold tension on the catheter to control bleeding during patient moved and transported. A drainage bag was placed. Once transportation is complete to the PACU the snap will be removed. The patient tolerated the procedure well, he was extubated in the operating and transferred in a stable condition to the recovery area. Total Power 150 kW Lasing time 23:19 Pathology: Prostate tissue Drains: Engel catheter
== END 2024-03-10 10:53 | disposition home or self-care (01) ==
PROVIDERS: PCP Internal Medicine; Visit Provider Urology
PROC: (CPT 52648; principal; 2024-03-10 07:30)
DX: N40.1 Benign prostatic hyperplasia with lower urinary tract symptoms (principal); N13.8 Other obstructive and reflux uropathy; R97.20 Elevated prostate specific antigen [PSA]; N48.6 Induration penis plastica; N32.89 Other specified disorders of bladder; Z79.899 Other long term (current) drug therapy; Z87.891 Personal history of nicotine dependence
CPT/HCPCS: 52649; 88305; J1956; J2405; J2704; J3010

== ENCOUNTER → 2024-03-10 05:58 | Outpatient (BNV) | payer OTHER, SELFPAY | PROVIDERS: PCP Internal Medicine; Visit Provider Urology | DX: N40.1 Benign prostatic hyperplasia with lower urinary tract symptoms (principal); N13.8 Other obstructive and reflux uropathy | CPT/HCPCS: 52649 ==

== ENCOUNTER → 2024-03-13 08:42 | Outpatient (BNVA) | payer OTHER, SELFPAY | PROVIDERS: PCP Family Medicine; Visit Provider Urology | DX: N40.1 Benign prostatic hyperplasia with lower urinary tract symptoms (principal); N13.8 Other obstructive and reflux uropathy | CPT/HCPCS: 51700; 51798 ==

== ENCOUNTER 2024-04-16 15:12 | Outpatient (AMB) | payer OTHER, SELFPAY ==
--- NOTE | 2024-04-16 15:16 | MHC.OFFVIS ---
Intake Visit Reasons: Greenlight- follow up Intake Note: Patient is present for GREENLIGHT Urology Medication:VITAMIN E, TERAZOSIN,FINASTERIDE Antibiotic Allergy:NONE Blood Thinner:NONE PVR:0 Traveling Crane Operator Required: No Allergies paroxetine [From Paxil] Adverse Reaction (Verified 04/16/24 15:20) Unknown HPI Comments Details: Shun is a pleasant male. He is a patient of Dr. Gonzalez. Seen for the following urologic conditions - BPH with elevated PSA - Peyronie's disease GreenLight laser 6 week follow-up PVR 0 Six-month follow-up PSA Very happy with outcome from GreenLight laser Greatly improved stream Decreased nocturia Stay on medications for 3 months and then can stop Six-month follow-up PSA Dr Chacko [place] endocrinology Free testosterone within normal range SHBG remains elevated - background of daily marijuana use with low-dose antipsychotics Hypergonadism Labs - 06/15 T 987 Free 241, FSH 4.3 LH 3.4 SHBG 98, estradiol 35, prolactin 35 - 08/15 Tumor Markers normal range - 11/16 T 757 Free 50 P 1.64 FSH 4.2 SHBG 93 Estradiol 30 - 05/16 922 F 75, SHBG 98, Imaging - 07/15 scrotal ultrasound normal no evidence of lesion BPH with elevated PSA Follow-up evaluation today for further evaluation of lower urinary tract symptoms Primary symptoms had been nocturia with weakness of stream Good response to terazosin 10mg and finasteride Progression of symptoms PSA historically variable between 3.2 and 4.4 - 05/14 4.6, 06/14 4.6, 12/13 2.8, 02/12 1.9, 05/15 1.5 Bladder ultrasound prostate 55 g 03/17 GreenLight laser prostatectomy Peyronie's disease Stable Does not interfere with intercourse Has concerns about progression May benefit from antioxidant therapy pentoxifylline and vitamin-E PFSH Medical History Depression Spinal stenosis DJD (degenerative joint disease) Benign prostatic hyperplasia with lower urinary tract symptoms Peyronie's disease Elevated PSA Surgical History (Updated 03/10/24 @ 07:17 by Yoanna Pedroza RN) Hx of tonsillectomy Hx of arthroscopic knee surgery History of carpal tunnel release of both wrists H/O colonoscopy Social History (Updated 03/06/24 @ 10:15 by Cristina Hameed RN) Patient Tobacco Use Status: Former Tobacco user Substance Use Type: Marijuana Review of Systems Const Denies chills and Denies fever(s) Card Reports no additional complaints and Denies syncope Resp Denies cough GI Denies abdominal pain and Denies heartburn Reports as per HPI and Denies change in libido Neuro Denies syncope Psych Denies change in libido Endo Denies change in libido Physical Exam Const General: cooperative, healthy appearing, comfortable and no acute distress Orientation/consciousness: patient oriented x3 HEENT Face and sinus: Yes normal facial exam Mouth: moist mucous membranes Neck Neck: Yes normal visual inspection, Yes full ROM and Yes trachea midline Chest Chest palpation & inspection: normal inspection of the chest Resp Effort & Inspection: normal respiratory effort, able to speak in complete sentences and no respiratory distress GI Inspection: Yes normal to inspection Back/Spine/Pelvis Cervical Spine: normal cervical lordosis Thoracic/Lumbar Spine: thoracic and lumbar spine normal to inspection Skin General skin exam: no rashes or lesions noted Neuro General: patient oriented x3, gait normal, tone normal and moves all extremities Extrem General: Yes normal to inspection and Yes capillary refill normal Office Procedures Post Void Residual Post Residual Void Post Void Residual (PVR): 0 [id number] Void Residual by ultrasound Assessment & Plan Assessment & Plan (1) Peyronie's disease: Code(s): N48.6 - Induration penis plastica Category: Medical (2) Elevated PSA: Code(s): R97.20 - Elevated prostate specific antigen [PSA] Category: Medical (3) BPH w urinary obs/LUTS: Code(s): N40.1 - Benign prostatic hyperplasia with lower urinary tract symptoms; N13.8 - Other obstructive and reflux uropathy Category: Medical Plan Six-month follow-up lab work Orders: Orders AMB Post Void Residual by ultrasound Today N13.8 - Other obstructive and reflux uropathy, N40.1 - Benign prostatic hyperplasia with lower urinary tract symptoms Prostate Specific Antigen 6 Months N13.8 - Other obstructive and reflux uropathy, N40.1 - Benign prostatic hyperplasia with lower urinary tract symptoms Patient Instructions: Imaging studies, laboratory and physical exam results were discussed and reviewed in detail. No major barriers to patient understanding were identified. An opportunity to ask questions regarding the treatment plan was provided. All questions were answered. The patient expressed understanding and agreement with the above treatment plan. The patient is aware they should contact our office by phone for worsening of their current condition or the appearance of new urologic symptoms. Compliance is encouraged with any medications and followup testing that is ordered. It is a privilege to participate in the urologic care of your patient. If you have any questions or concerns regarding treatment for the above conditions, or other urologic issues, please do not hesitate to contact me. The office telephone contact is [phone]. This note is constructed using voice recognition software. While every effort has been made to ensure accuracy electronic operator errors may have been included. Yours sincerely, Dr Hugo Mccoy MD, [facility] - Urology Providers of Expert, Compassionate Care for the Genitourinary System Coding Level of Care Code Est Pt Level 3 (47316) Diagnoses Peyronie's disease N48.6 Elevated PSA R97.20 BPH w urinary obs/LUTS N40.1; N13.8 CPT Codes Post Residual Void - PVR CPT Code: 78429-Fgcd Void Residual by ultrasound ([id number])
== END 2024-04-16 16:08 | disposition home or self-care (01) ==
PROVIDERS: PCP Family Medicine; Visit Provider Urology
DX: N48.6 Induration penis plastica (principal); R97.20 Elevated prostate specific antigen [PSA]; N40.1 Benign prostatic hyperplasia with lower urinary tract symptoms; N13.8 Other obstructive and reflux uropathy
CPT/HCPCS: 99024

== ENCOUNTER → 2024-04-16 15:12 | Outpatient (BNVA) | payer OTHER, SELFPAY | PROVIDERS: PCP Family Medicine; Visit Provider Urology | DX: N40.1 Benign prostatic hyperplasia with lower urinary tract symptoms (principal); N13.8 Other obstructive and reflux uropathy; N48.6 Induration penis plastica; R97.20 Elevated prostate specific antigen [PSA] | CPT/HCPCS: 51798; 99212 ==

== ENCOUNTER 2024-10-14 12:44 | Outpatient (REF) | payer OTHER, SELFPAY ==
[2024-10-14 14:18] LABS: Prostate Specific Antigen 2.96 ng/mL (<0.05-4.0)
--- OUTSIDE RECORDS SUMMARY | 2024-10-14 14:20 | XMS_ITS | Encounter Summary ---
Author Name [facility] [place] Organization [facility] [place] Address [address] [place] [id number] Care Team Providers Care Prefabricator Name Role Phone AMEE FINLEY Primary Care Provider Unavailabl e Insurance Providers: All historical and current Section Date Range: From patient's date of to the date document was created. This section includes the names of all active insurance providers for the patient. Insurance Provider Type of Coverage Plan Name Start of Policy Coverage End of Policy Coverage Group Number Member ID Insurance Provider's Telephone Number Policy Aldridge's Name Patient's Relationship to Policy Aldridge [facility] (WNR) MEDICARE ADVANTAGE [place] INDIV IDUAL - [place] Sep 24, 2022 [id number] [phone] JING MUNIZ RK PATIENT [facility] [facility] (WNR) MEDICARE ADVANTAGE [facility] (WNR) Sep 24, 2022 [id number] [phone] JING MUNIZ RK PATIENT MEDICAID MEDICAID [facility] Sep 24, 2015 MEDICAI D [id number] JING MUNIZ RK PATIENT Selected Encounter This section includes the information on record at [place] for the Encounter. Date/Time Encounter Type Encounter Description Reason Pro vider Source Dec 20, 2023 01:00 PM Outpatient Encounter PRIMARY CARE/MEDICINE IHE Encounter Template Text not used by [facility] Plan of Treatment: Future Appointments (+ 6 months) and Future Tests (+/- 45 days) The Plan of Treatment section includes future care activities for the patient from all [place] [facility]. This section includes future appointments and future orders which are active, pending or scheduled. Future Appointments This section includes appointments that were scheduled to occur 6 months from the date of the Encounter, up to a maximum of 20 appointments. The data comes from all [place] treatment facilities. Appointment Date/Time Appointment Type Appointme nt Facility Name Dec 28, 2023 10:30 AM AMBULATORY - [facility] Jan 11, 2024 01:30 PM AMBULATORY - MEDICINE [facility] February 01, 2024 01:00 PM AMBULATORY - MEDICINE [facility] Mar 26, 2024 11:00 AM AMBULATORY - SURGERY [facility] Apr 17, 2024 11:00 AM AMBULATORY - PSYCHIATRY [facility] May 12, 2024 11:00 AM AMBULATORY - MEDICINE [facility] May 30, 2024 10:30 AM AMBULATORY - NONE [facility] Lab Results: +/- 30 days of the encounter This section includes the Chemistry and Hematology Lab Results on record with [place] for the patient. Radiology Reports and Pathology Reports are provided separately, in subsequent sections. Lab Results This section contains the Chemistry/Hematology Results that were resulted 30 days before or 30 daysafter the date of the Encounter. Date/Time Source Result Type Result - Unit Interpretation Reference Range Comment Dec 19, 2023 09:14 AM [place] DRUGS OF ABUSE Specimen Type: URINE Comment: Urine with Cr <5 is diluted or substituted. Cr between 5 and 20 is very dilute. Urine with SG of 1.001 or less is diluted or substituted. SG of 1.003 or less is very dilute. Urine with a pH <3 or >11 has been adulterated and is unsuitable for testing by our current method. Urine with pH between 3 and 4 OR 10 and 11 may have been adulterated. Ordering Provider: SKYLER SPENCER Report Released Date/Time: Dec 14, 2023 01:58 PM Reporting Lab: [address] [address] Performing Lab: [address] [address] AMPHETAMINES SCREEN NONE-DETECTED None-Detec stella, Cutoff = 1000 ng/mL BENZODIAZEPINES SCREEN NONE-DETECTED None-Detec stella, Cutoff = 200 ng/mL COCAINE SCREEN NONE-DETECTED N one-Detec stella,Cutoff = 300 ng/mL OPIATES SCREEN NONE-DETECTED N one-Detec stella, Cutoff = 300 ng/mL CANNABINOIDS SCREEN POSITIVE HH None-Detec stella,Cutoff = 50 ng/mL BARBITURATES SCREEN NONE-DETECTED None-Detec stella,Cutoff = 200 ng/mL OXYCODONE SCREEN NONE-DETECTED None-Detec stella, Cutoff = 100 ng/mL BUPRENORPHINE (URINE) NONE-DETECTED None Detected, Cutoff = 10.0 ng/mL ALCOHOL, ETHYL URINE NONE-DETECTED mg/dL NONE-DETEC STELLA, cutoff = 10 mg/dL FENTANYL SCREEN NONE-DETECTE D ng/mL Negative: Cutoff = 1.00 ng/mL PH, ALTAGRACIA 5.3 [pH] 4-10 CREATININE, ALTAGRACIA 187.73 mg/dL >20 SP.GRAVITY, ALTAGRACIA 1.026 H 1.00 3-1.02 0 Dec 19, 2023 09:02 AM [place] LIPID PANEL FASTING Specimen Type: SERUM No comment entered. Ordering Provider: SYD KRAUSE Report Released Date/Time: Dec 13, 2023 03:34 PM Reporting Lab: [address] [address] Performing Lab: [address] [address] CHOLESTEROL 178 mg/dL TRIGLYCERIDE 49 mg/dL 0-150 LDL calculated 87 mg/dL 0-129 CHOL/HDL 2.2 HDL CHOLESTEROL 81 mg/dL H 40-60 Dec 19, 2023 09:02 AM [place] LIVER FUNCTION Specimen Type: SERUM No comment entered. Ordering Provider: SYD KRAUSE Report Released Date/Time: Dec 13, 2023 03:34 PM Reporting Lab: [address] [address] Performing Lab: [address] [phone] PROTEIN,TOTAL 6.8 g/dL 6.0-8.3 ALBUMIN 4.3 g/dL 3.5-5.0 ALKALINE PHOSPHATASE 50 U/L 40-150 AST 25 U/L 5-34 ALT 20 U/L BILIRUBIN, TOTAL 0.4 mg/dL 0.2-1.2 Dec 19, 2023 09:02 AM [place] BASIC METABOLIC PANEL (fasting) Specime n Type: SERUM No comment entered. Ordering Provider: SYD KRAUSE Report Released Date/Time: Dec 13, 2023 03:34 PM Reporting Lab: [address] [phone] Performing Lab: [address] [address] UREA NITROGEN 16 mg/dL 7-25 GLUCOSE 99 mg/dL 65-100 SODIUM 141 mmol/L 135-145 POTASSIUM 4.2 mmol/L 3.5-5.0 CHLORIDE 105 mmol/L 100-110 CO2 27 meq/L 20-30 CREATININE, Serum 0.86 mg/dL 0.50-1.40 eGFR(CKD-EPI 2020) >90 mL/min >60 Dec 19, 2023 09:02 AM [place] HEMOGLOBIN A1C PANEL Specimen Type: BLOOD Comment: Values obtained from A1C measurements can vary. For atypical A1C assays, a reported value of 7.0 could actually be between 6.72 and 7.28 if measured by a reference method. A reported value of 9.0 could actually be between 8.73 and 9.27. Ref: http://www.ng sp.org/CAPdat a.asp Ordering Provider: SYD KRAUSE Report Released Date/Time: Dec 13, 2023 03:34 PM Reporting Lab: [address] [address] Performing Lab: [address] [address] HEMOGLOBIN A1C 4.8 4.0-5.6 Dec 19, 2023 09:02 AM [place] TSH Specimen Type: SERUM No comment entered. Ordering Provider: SYD KRAUSE Report Released Date/Time: Dec 13, 2023 03:34 PM Reporting Lab: [address] [phone] Performing Lab: [address] [address] TSH 1.27 u[IU]/mL 0.35-5.00 Dec 19, 2023 09:02 AM [place] CALCIUM Specimen Type: SERUM No comment entered. Ordering Provider: SYD KRAUSE Report Released Date/Time: Dec 13, 2023 03:34 PM Reporting [facility]: [facility] [address] [address] Performing Lab: [facility] [address] [address] CALCIUM 9.1 mg/dL 8.5-10.2 Dec 19, 2023 09:02 AM [place] URIC ACID Specimen Type: SERUM No comment entered. Ordering Provider: SYD KRAUSE Report Released Date/Time: Dec 13, 2023 03:34 PM Reporting Lab: [facility] [address] [address] Performing Lab: [address] [address] URIC ACID 4.1 mg/dL 3.5-7.2 Dec 19, 2023 09:02 AM [place] PSA Specimen Type: SERUM No comment entered. Ordering Provider: SYD KRAUSE Report Released Date/Time: Dec 13, 2023 03:34 PM Reporting Lab: [facility] [address] [address] Performing Lab: [address] [address] PSA 1.86 ng/mL 0.00-4.00 Dec 19, 2023 09:02 AM [place] CBC AND DIFF (AUTO) Specimen Type: BLOOD No comment entered. Ordering Provider: SYD KRAUSE Report Released Date/Time: Dec 13, 2023 03:34 PM Reporting Lab: [address] [address] Performing Lab: [facility] [address] [address] WBC 6.05 10*3/uL 4.50-11.00 RBC 4.67 10*6/uL 4.23-5.66 HGB 14.7 g/dL 12.8-17 HCT 42.6 39.2-50.4 MCV 91.2 fL 82-99 MCHC 34.5 g/dL 30.8-35.1 PLT 207 10*3/uL 140-360 RDW-CV 11.9 L 12.0-16.0 [place], Abs 0.55 10*3/uL 0.30-1.10 MCH 31.5 pg 26.2-32.6 Neut % 65.6 43.7-75.8 Lymph % 23.1 14.0-42.3 [place] % 9.1 5.1-13.7 Eos % 1.7 0.4-6.8 Baso % 0.2 0.1-2.0 Neut, Abs 3.97 10*3/uL 2.20-7.60 Lymph, Abs 1.40 10*3/uL 1.00-3.20 Eos, Abs 0.10 10*3/uL 0.03-0.44 Baso, Abs 0.01 10*3/uL 0.01-0.13 Immature Gran % 0.3 0.0-0.7 Immature Gran, Abs 0.02 10*3/uL 0.00-0.06 Social History: Smoking Status (Most current) and Tobacco Use (All prior to encounter date) This section includes the most current, and the historical, smoking and tobacco- related health factors from the [place] facility where the Encounter took place. Current Smoking Status This section includes the most current smoking, or tobacco-related health factor, from the [place] facility where the Encounter took place. Date/Time Current Smoking Status Comment Facil ity Jun 27, 2023 10:30 AM [place]-TOBAC[place] QUIT 15 YRS OR MORE [place] Tobacco Use History This section includes a history of the smoking, or tobacco-related health factors, that were collected on or before the date of the Encounter. The data comes from the [place] facility where the Encounter took place. Date/Time Smoking Status/Tobacco Use Comment F acility Jun 27, 2023 10:30 AM [place]-TOBACCO QUIT 15 YRS OR MORE [place] Apr 28, 2022 11:00 AM VA-TOBACCO FORMER USER [place] Apr 28, 2022 11:00 AM VA-TOBACCO QUIT 15 YRS OR MORE [place] February 14, 2021 11:30 AM VA-TOBACCO FORMER USER [place] February 14, 2021 11:30 AM VA-TOBACCO QUIT 5 TO < 15 YRS [place] Jan 16, 2019 11:56 AM VA-TOBACCO FORMER USER [place] Jan 16, 2019 11:56 AM VA-TOBACCO QUIT 5 TO < 15 YRS [place] January 29, 2018 09:04 AM QUIT TOBACCO USE > 7 YEARS AGO [place] February 15, 2017 11:10 AM QUIT TOBACCO USE > 7 YEARS AGO Pt. states he quit smoking more than 20 years. [place] Encounter Notes: All associated encounter notes This section contains the clinical notes associated to the Encounter. Date/Time Encounter Note(s) Provider Source Dec 11, 2023 03:51 PM ADMINISTRATIVE NOT E: LOCAL TITLE: ADMINISTRATIVE NOTE STANDARD TITLE: ADMINISTRATIVE NOTE DATE OF NOTE: DEC 11, 2023@15:51 ENTRY DATE: DEC 11, 2023@15:51:25 AUTHOR: MATHEW GEIGER COSIGNER: URGENCY: STATUS: COMPLETED [facility] [address] [place] [phone] * [phone] * VAZQUEZ MUNIZ [address], [place] [address] Date: DEC 11, 2023 re: This is a reminder of your upcoming PCP appt with BERT KRAUSE. Appointment Date: Nov@13:00 Appointment Type: In-person visit Fasting blood work NON fasting blood work confirmed with the Sincerely, Office Staff for: BERT KRAUSE Primary Care Provider [facility] [address] [place] [address] T [phone] F [phone] Upcoming Appointments: 12/14/2023 13:30 CWM/SO/MHC/SPENCER 12/20/2023 13:00 CWM/SO/PACT 2 AP[facility]MENT [facility] [place] (SPOPC OR SO = [place], [facility]) (GOPC OR GO = [place], [facility]) (NHM or NO = [facility]) (VVC - Video Call) (Tel-X Telephone Visit) (TH - Telehealth) /lucas/ MATHEW HAYWARD Signed: 12/11/2023 15:52 MATHEW GEIGER
--- OUTSIDE RECORDS SUMMARY | 2024-10-14 14:20 | XMS_ITS | Encounter Summary ---
Author Name [facility] ([place]) Organization [facility] Address [address] [place] [id number] Care Team Providers Care Shear Scrapman Name Role Phone AMEE FINLEY Primary Care [...] Aldridge's Name Patient's Relationship to Policy Ald[facility] [place] Sep 24, 2022 [id number] [phone] JING MUNIZ RK PATIENT AETNA [facility] (WNR) MEDICARE ADVANTAGE [facility] ([facility]) Sep 24, 2022 [id number] [phone] JING MUNIZ RK PATIENT MEDICAID MEDICAID [facility] Sep 24, 2015 MEDICAI D [id number] JING MUNIZ RK PATIENT Selected Encounter This section includes the information on record at [place] for the Encounter. Date/Time Encounter Type Encounter Description Reason Provider Source Jul 23, 2024 11:00 AM OFFICE O/P EST MOD 30 MIN [facility] - IND ICD-10-CM F32.A Depression, unspecified RONDON,STEPHE N G IHE Encounter Template Text not used by [place] Assessments - Encounter Diagnoses This section includes the primary and secondary diagnoses documented for the Encounter. Date/Time Primary/Secondary Diagnosis Diagnosis Name Provider Source Jul 23, 2024 11:34 AM PRIMARY Depression, unspecified ISAAC RONDON SHAHBAZ Plan of Treatment: Future Appointments (+ 6 months) and Future Tests (+/- 45 days) The Plan of Treatment section includes future care activities for the patient from all [place] treatmentfacilities. This section includes future appointments and future orders which are active, pending or scheduled. Future Appointments This section includes appointments that were scheduled to occur 6 months from the date of the Encounter, up to a maximum of 20 appointments. The data comes from all [place] treatment facilities. Appointment Date/Time Appointment Type Appointme nt Facility Name Oct 09, 2024 09:30 AM [facility] Oct 17, 2024 02:00 PM AM[facility]ULATORY [facility] MEDICINE [facility] Nov 07, 2024 11:00 AM AMBULATORY - PSYCHIATRY [facility] Social History: Smoking Status (Most current) and Tobacco Use (All prior to encounter date) This section includes the most current, and the historical, smoking and tobacco- related health factors from the [place] facility where the Encounter took place. Current Smoking Status This section includes the most current smoking, or tobacco-related health factor, from the [place] facility where the Encounter took place. Date/Time Current Smoking Status Comment [facility] Jun 27, 2023 10:30 AM VA-TOBACCO FORMER USER [facility] Tobacco Use History This section includes a history of the smoking, or tobacco-related health factors, that were collected on or before the date of the Encounter. The data comes from the [place] facility where the Encounter took place. Date/Time Smoking Status/Tobacco Use Comment F acility Jun 27, 2023 10:30 AM VA-TOBACCO QUIT 15 YRS OR MORE [facility] Apr 28, 2022 11:00 AM VA-TOBACCO FORMER USER [facility] Apr 28, 2022 11:00 AM VA-TOBACCO QUIT 15 YRS OR MORE [facility] February 14, 2021 11:30 AM VA-TOBACCO FORMER USER [facility] February 14, 2021 11:30 AM VA-TOBACCO QUIT 5 TO < 15 YRS [facility] Jan 16, 2019 11:56 AM VA-TOBACCO FORMER USER [facility] Jan 16, 2019 11:56 AM VA-TOBACCO QUIT 5 TO < 15 YRS [facility] January 29, 2018 09:04 AM QUIT TOBACCO USE > 7 YEARS AGO [facility] February 15, 2017 11:10 AM QUIT TOBACCO USE > 7 YEARS AGO Pt. states he quit smoking more than 20 years. [facility] Encounter Notes: All associated encounter notes This section contains the clinical notes associated to the Encounter. Date/Time Encounter Note(s) Provider Source Jul 23, 2024 11:16 AM ACCOUNTING OF DISC LOSURES NOTE: LOCAL TITLE: STATE PRESCRIPTION DRUG MONITORING PROGRAM STANDARD TITLE: ACCOUNTING OF DISCLOSURES NOTE DATE OF NOTE: JUL 23, 2024@11:16:18 ENTRY DATE: JUL 23, 2024@11:16:18 AUTHOR: ISAAC RONDON EXP COSIGNER: URGENCY: STATUS: COMPLETED This PDMP query was submitted by Isaac Rondon MD. The clinical justification for this PDMP query is to review controlled substances prescribed outside of the [facility], and any additional information that may become available, as an important component of standard clinical care, and in accordance with [facility] policy. Patient information was shared with the PDMP [facility] [place]. No prescription(s) for controlled substances outside the [facility] were found in the last 90 days. /lucas/ ISAAC RONDON MD STAFF PSYCHIATRIST Signed: 07/23/2024 11:34 ISAAC RONDON [facility] Jul 23, 2024 11:09 AM PSYCHIATRY NOTE: LOCAL TITLE: PSYCHIATRY NOTE STANDARD TITLE: PSYCHIATRY NOTE DATE OF NOTE: JUL 23, 2024@11:09 ENTRY DATE: JUL 23, 2024@11:10:04 AUTHOR: ISAAC RONDON EXP COSIGNER: URGENCY: STATUS: COMPLETED 30 min for encounter, inlcuding chart review, interview, charting chart reviewed Pt remains stable. Feels good. Denies depression, and anxiety better. Affect brightens appropriately. He again feels attn/conc remains improved. He does try to use relaxation strategies to manage anxiety when possible. But he finds occ prn low dose klonopin helpful. He denies SI and violent ideation. No psychotic symptoms. Well organized. No paranoid or delusional content presented. Speech normal. Future oriented. Cognitive exam grossly intact/unchanged from last appt. No slowing noted. Good self care. Has interests, stays active. The patient reports good response to current psychiatric medications, but wants to complete remeron taper -- see below. Again, he requests to have a small amount of Klonopin available for when anxiety is especially high. 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 Vitamin D Deficiency ([facility] [id number]) 2. HTN-Hypertension ([facility] 55150721) 3. Spasm of back muscles 4. Cervical pain 5. Hyperandrogenism 6. Alcohol intake above recommended sensible limits 7. Peyronies disease 8. BPH - benign prostatic hyperplasia 9. Long-term current use of cannabis 10. Inflamed seborrheic keratosis 11. Ex-cigarette smoker 12. Colonoscopy normal 13. Sinus bradycardia 14. Carpal tunnel 15. Family history of prostate cancer 16. Osteoarthritis (SNOMED CT 662178705) 17. Spinal stenosis in cervical region (SNOMED CT 92808866) 18. Major depression in partial remission (SNOMED CT 11600323) 19. Anxiety disorder (SNOMED CT 895206748) 20. Pain in limb Active Outpatient Medications (including Supplies): Active Outpatient Medications Status ======= 1) BUPROPION HCL 300MG 24HR SA TAB TAKE ONE TABLET BY ACTIVE MOUTH ONCE DAILY 2) BUSPIRONE HCL 10MG TAB TAKE TWO TABLETS BY MOUTH ACTIVE TWICE DAILY FOR ANXIETY 3) CLONAZEPAM 0.5MG TAB TAKE ONE-HALF TABLET BY MOUTH ACTIVE EVERY 24 HOURS NEEDED ANXIETY 4) FINASTERIDE 5MG TAB TAKE ONE TABLET BY MOUTH ONCE ACTIVE DAILY 5) MIRTAZAPINE 15MG TAB TAKE ONE-HALF TABLET BY MOUTH AT ACTIVE BEDTIME FOR DEPRESSION/MOOD 6) SIMVASTATIN 40MG TAB TAKE ONE-HALF TABLET BY MOUTH ACTIVE ONCE DAILY FOR CHOLESTEROL 7) TERAZOSIN HCL 10MG CAP TAKE ONE CAPSULE BY MOUTH AT ACTIVE BEDTIME Active Non-VA Medications Status ======= 1) Non-VA CHOLECALCIF 25MCG (D3-1,000UNIT) TAB 25MCG BY ACTIVE MOUTH ONCE DAILY 2) Non-VA CYANOCOBALAMIN 1000MCG TAB 1000MCG BY MOUTH ACTIVE ONCE DAILY 3) Non-VA MELATONIN 5MG CAP/TAB 10MG BY MOUTH ONCE DAILY ACTIVE 10 Total Medications PAST PSYCH MED HX: partial zoloft -- helped -- then stopped helping -- now helping buspar -- helped -- now helping celexa remeron klonopin stimulant -- 05/2016 to 02/2017 from [facility] -- dextroamphetamine w good response paxil -- anxiety gabapentin wellbutrin -- in past alone but not in comnitation w another antidepr cymbalta -- ? prior trial melatonin -- not help IMP: dsm-5 Major depression --much improved Unspecified anxiety disorder ADHD -by hx-dx as an adult (not dx in childhood) - testing does not support dx Chronic pain -- neck and back pain, DJD amd CTS Sleep apnea -- has cpap r/o ptsd (from of sister in childhood) Alcohol abuse, by hx -- pt denies this, reports limited use Mild neurocognitive disorder Cannabis use -- has medical marijuana card PLAN: Careful risk assessment performed. See C-SSRS 08/2023 - same today The pt is probably low risk for suicide or violence -- the patient denied suicidal and violent ideation, but the [facility] information and number were reviewed w patient as a precaution. The patient also understands to call 911 or to go to ER in the event of an emergency. Again, the patient declines another psychotherapy referral We again discussed the patient's alcohol use, patient reports limited use and does not see it as problem. The patient has good understanding about the psychiatric and medical problems which can be associated with alcohol use. But he does not feel that this amount of alcohol is problematic, he does not feel he has an alcohol problem. I made patient aware of referral possibilities through the [facility], [facility] or our substance abuse group in clinic, or AA/sponsor. However patient does not feel this is needed. Continue to review at future appointments. The patient does not feel he needs MAT for h/o AUD. dc remeron - pt wants to stop this to avoid more wt gain -- he had tapered down previously; I had asked him to call clinic if any increase in depression or anxiety off of this CONTINUE BUPROPION XL 300 MG DAILY --feels he has good response to this dose, helps depressive symptoms and with attention and concentration --I reviewed side effect profile. I previously reviewed with patient that Wellbutrin can increase seizure risk by lowering seizure threshold, but this is probably a low risk, patient denies any history of seizures. CONTINUE BUSPAR 20 MG TWICE DAILY for anxiety and to augment antidepressants. Good response another discussion -- the patient again requests to continue to have a small amount of low-dose Klonopin available for occasional use for severe anxiety. This is reasonable, he has taken this responsibly in the past. CONTINUE KLONOPIN, SO CONTINUE 0.25 MG EVERY 24 HOURS NEEDED ANXIETY, #5 OF THE 0.5 MG TABS FOR 30 DAYS (and likely to last much longer -- pt takes very occ and pt states 1/2 tab effective). The patient understands not to combine Klonopin with alcohol. I educated the patient about the side effect profile of the benzodiazepine, including potential for sedation, for impaired coordination, for falling, for respiratory suppression, for increase mortality risk, and for impaired cognition. The patient was advised not to drive after taking the benzodiazepine. The patient was advised about the potential for excessive sedation/respiratory suppression when the benzodiazepine is taken with other medications, including with with narcotics. The patient was advised not to take the benzodiazepine with alcohol. The patient was advised about the potential for addiction to the benzodiazepine. The concepts in the benzodiazepine treatment contract were reviewed with the patient and the patient agreed. The patient demonstrated good understanding of the benzodiazepine side effect profile. The benefits of benzodiazepine treatment outweigh risks for this patient. see repeat neuro psych testing -- this did not support dx of adhd I instructed the patient to return to clinic in about 3-4 mo for medication check. I encouraged the patient to call or to come to open access sooner if needed. The discussion with patient about treatments including medications involved shared decision making. The patient was educated about the rationale and plan for the psychiatric medications. Medication instructions were reviewed with the patient. Alternatives to treatment were discussed with the patient. The side effect profile of the psychiatric medications was reviewed with the patient. This also included discussion of potential drug interactions associated with psychiatric medication. The patient discussed/verbalized back the understanding of the medication, side effects, and the plan/instructions, and the patient asked good questions. The patient demonstrated reasonable understanding of the medication side effects and the above-mentioned issues. The benefits of psychiatric medications outweigh risks for this patient. The patient consents to medication treatment. I asked the patient to call me or to come to open access if the patient does not like the effect of psychiatric medication or if has side effects with psychiatric medication. The patient has a medical marijuana card; I reviewed with the patient potential psychiatric and medical problems associated with marijuana, but patient feels benefits outweigh risks -- although he reports cutting down; [facility] group available -- pt does not feel he needs this He previously reported alpha stim for anxiety w good response -- encourage more regular use I previously educated the patient about the importance of using cpap for sleep apnea Patient to follow-up with primary care for medical problems Note that UDS 11/2023 was negative except cannabinoids as patient described Medication Reconciliation: Outpatient: Has the patient been taking medications as documented in the EMLR? YES: The patient has been taking medications as documented in the EMLR. Essential Medication List for Review used to complete this medication reconciliation. INCLUDED IN THIS LIST: Alphabetical list of active outpatient prescriptions dispensed from this [facility] (local) and dispensed from another VA or DoD facility (remote) as well as inpatient orders (local, pending and active), local clinic medications, locally documented non-VA medications, and local prescriptions that have or been discontinued in the past 90 days. - All changes in medications, including all non-VA/Herbal/OTC medications were entered into CPRS. - If there were any medications the patient should no longer take, they were discontinued. - The patient/caregiver was instructed to update this list, discard old lists, and take this list to the next appointment, whether with a VA or non-VA provider. /lucas/ ISAAC RONDON MD STAFF PSYCHIATRIST Signed: 07/23/2024 11:34 ISAAC RONDON
--- OUTSIDE RECORDS SUMMARY | 2024-10-14 14:20 | XMS_ITS | Continuity of Care Document ---
Author Name [facility] Organization [facility] Care Team Providers Care Accelerator Systems Director Name Role Phone [facility] Unavailable Unavailable Problems Combined list of problems from Department of Defense and Veterans Affairs facilities. It does not include entries that were removed or entered in error. 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 (ICD-9-CM 309.28) Active Condition [facility] Alcohol intake above recommended sensible limits Active Condition Oct 18, 2022 Entered By: SKYLER SPENCER Comment: Reports reduced useJul 2023 Entered By: SKYLER SPENCER Comment: reports limited use [facility] Anxiety disorder (SNOMED CT 985330294) Active Condition Aug 13, 2018 Entered By: SKYLER SPENCER Comment: improvedFeb 2020 Entered By: SKYLER SPENCER Comment: reviewedFeb 2021 Entered By: SKYLER SPENCER Comment: reviewedJan 2022 Entered By: SKYLER SPENCER Comment: reviewedJul 2023 Entered By: SKYLER SPENCER Comment: reviewed [facility] BPH - benign prostatic hyperplasia Active Condition [facility] Carpal tunnel Active Condition May Entered By: SUNNY MAYNARD Comment: repair b/l 2018 [facility] Carpal tunnel syndrome Active Condition [facility] Cervical Disc Displacmnt Active Condition [facility] Cervical pain Active Condition [facility] Chondromalacia of patella (ICD-9-CM 717.7) Active Condition [facility] Colonoscopy normal Active Condition S 2017 Entered By: SUNNY MAYNARD Comment: 10/11 due 10/21 [facility] Depressive Disorder NOS Active Condition Aug 21, 2006 Entered By: LIZZETH KEBEDE Comment: with obsessive compulsive traits [facility] Ex-cigarette smoker Active Condition Jul 21, 2019 Entered By: SUNNY MAYNARD Comment: NEG AAA screen 07/12 [facility] Family history of prostate cancer Active Condition January 22, 2015 Entered By: KASANDRA TORRES Comment: Brother prostate cancer. [facility] HTN-Hypertension (SCT 00418839) Active Condition [facility] Hyperandrogenism Active Condition [facility] Inflamed seborrheic keratosis Active Condition [facility] Long-term current use of cannabis Active Condition Feb 22, 2022 Entered By: SKYLER SPENCER Comment: has medical marijuana cardJan 2022 Entered By: SKYLER SPENCER Comment: reviewed [place] Major depression in partial remission (SNOMED CT 06101423) Active Condition Aug 13, 2018 Entered By: SKYLER SPENCER Comment: much improvedJan 2019 Entered By: SKYLER SPENCER Comment: reviewedFeb 2020 Entered By: SKYLER SPENCER Comment: reviewedFeb 2021 Entered By: SKYLER SPENCER Comment: reviewedJan 2022 Entered By: SKYLER SPENCER Comment: reviewedJul 2023 Entered By: SKYLER SPENCER Comment: full remission [facility] Osteoarthritis (SNOMED CT 388978630) Active Condition Sep 03, 2019 Entered By: SUNNY MAYNARD Comment: 09/03/19 Mild degree multilevel lumbar spondylosis. [facility] Peyronies disease Active Condition [facility] Pneumonia (ICD-9-CM 486.) Active Condition [facility] Sinus bradycardia Active Condition [facility] Spasm of back muscles Active Condition [facility] Spinal stenosis in cervical region (SNOMED CT 60624715) [facility] [place] Tobacco dependence, continuous Active Condition [facility] Vitamin D Deficiency ([facility] [id number]) Active Condition [place] Alcohol Abuse (ICD-9-CM 305.00) Inactive Condition [facility] [facility] Attention deficit hyperactivity disorder Inactive Condition 10/02/2019 Nov 27, 2018 Entered By: SKYLER SPENCER Comment: testing does not support this dx [facility] Cannabis abuse, continuous use (ICD-9-CM 305.21) Inactive Condition 02/22/2022 Nov 19 Entered By: SKYLER SPENCER Comment: reviewedOct 26, 2021 Entered By: SKYLER SPENCER Comment: reviewed [facility] [place] Diagnosis: ICD-10-CM F32.A Depression, unspecified Active Diagnosis [place] Diagnosis: ICD-10-CM Z12.2 Encntr screen for malignant neoplasm of respiratory organs Active [facility] Diagnosis: ICD-10-CM I10 Essential (primary) hypertension Active Diagnosis [place] Diagnosis: ICD-10-CM H25.13 Age-related nuclear cataract, bilateral Active Diagnosis [facility] Diagnosis: ICD-10-CM Z01.30 Encounter for exam of blood pressure w/o abnormal findings Active Diagnosis [place] Diagnosis: ICD-10-CM F41.9 Anxiety disorder, unspecified Active Diagnosis [place] Diagnosis: ICD-10-CM Z23 Encounter for immunization Active Diagnosis [place] Diagnosis: ICD-10-CM F33.41 Major depressive disorder, recurrent, in partial remission Active Diagnosis [facility] Diagnosis: ICD-10-CM Z46.0 Encounter for fit/adjst of spectacles and contact lenses Active Diagnosis [facility] Medications Combined list of outpatient medications from Department of Defense and Veterans Affairs facilities.Medications provided include 1) outpatient medications from the last 15 months, and 2) patient-reported medications. Medication Details Route Status Patient Instructions Prescription Expires Prescription Number Last Dispense Date Ordering Provider Order Date Order Qty Source BUPROPION HCL 300MG 24HR TAB,SA TAKE ONE TABLET BY MOUTH ONCE DAILY ORAL ACTIVE 07/24/2025 [id number] Nissa SPENCER 2023 30 [place] BUPROPION HCL 300MG 24HR TAB,SA TAKE ONE TABLET BY MOUTH ONCE DAILY ORAL DISCONT INUED 09/12/2024 [id number] 4 Nissa SPENCER 2022 30 [place] BUPROPION HCL 300MG 24HR TAB,SA TAKE ONE TABLET BY MOUTH ONCE DAILY ORAL DISCONT INUED 10/19/2023 [id number] Nissa SPENCER 2022 30 [place] BUSPIRONE HCL 10MG TAB TAKE TWO TABLETS BY MOUTH TWICE DAILY FOR ANXIETY ORAL ACTIVE 04/18/2025 [id number] 4 Nissa SPENCER 2023 240 [place] BUSPIRONE HCL 10MG TAB TAKE TWO TABLETS BY MOUTH TWICE DAILY FOR ANXIETY ORAL DISCONT INUED (EDIT) 12/14/2024 [id number] 4 Nissa SPENCER 2023 120 [place] BUSPIRONE HCL 15MG TAB TAKE ONE TABLET BY MOUTH TWICE DAILY FOR ANXIETY ORAL DISCONT INUED (EDIT) 09/12/2024 [id number] 4 Nissa SPENCER 2023 60 [place] BUSPIRONE HCL 15MG TAB TAKE ONE TABLET BY MOUTH TWICE DAILY FOR ANXIETY ORAL DISCONT INUED 10/19/2023 [id number] 3 Nissa SPENCER 2022 60 [place] CHOLECALCIF KAI 25MCG (1,000UNIT) TAB TAKE ONE TABLET BY MOUTH ONCE DAILY ORAL ACTIVE LEONOR RICHARDS 2019 [place] CLONAZEPAM 0.5MG TAB TAKE ONE-HALF TABLET BY MOUTH EVERY 24 HOURS NEEDED ANXIETY ORAL ACTIVE 01/23/2025 [id number] 4 Nissa SPENCER 2023 5 [place] CLONAZEPAM 0.5MG TAB TAKE ONE-HALF TABLET BY MOUTH EVERY 24 HOURS NEEDED ANXIETY ORAL DISCONT INUED 10/18/2024 [id number] 4 Nissa SPENCER 2023 5 [place] CLONAZEPAM 0.5MG TAB TAKE ONE-HALF TABLET BY MOUTH EVERY 24 HOURS NEEDED ANXIETY ORAL DISCONT INUED 06/15/2024 [id number] SPENCRENissa 2023 5 [place] CLONAZEPAM 0.5MG TAB TAKE ONE-HALF TABLET BY MOUTH EVERY 24 HOURS NEEDED ORAL DISCONT INUED 03/14/2024 [id number] 4 Nissa SPENCER 2022 5 [place] CLONAZEPAM 0.5MG TAB TAKE ONE-HALF TABLET BY MOUTH EVERY 24 HOURS NEEDED ORAL DISCONT INUED 02/01/2024 [id number] 3 Nissa SPENCER 2022 5 [place] CYANOCOBALA MIN 1000MCG TAB TAKE ONE TABLET BY MOUTH ONCE DAILY ORAL ACTIVE LEONOR RICHARDS 2018 [place] FINASTERIDE 5MG TAB TAKE ONE TABLET BY MOUTH ONCE DAILY ORAL ACTIVE 11/23/2024 [id number] ASHLEY VYAS MD 2023 90 [facility] FINASTERIDE 5MG TAB TAKE ONE TABLET BY MOUTH ONCE DAILY ORAL DISCONT INUED 06/12/2024 [id number] BRYANT NUNEZ 2022 90 [place] LOSARTAN 50MG TAB TAKE ONE TABLET BY MOUTH ONCE DAILY FOR BLOOD PRESSURE /HEART ORAL ACTIVE 08/01/2025 [id number] 4 Anastasiia FINLEY 2023 90 [place] LOSARTAN 50MG TAB TAKE ONE TABLET BY MOUTH ONCE DAILY FOR BLOOD PRESSURE /HEART ORAL DISCONT INUED 06/12/2024 [id number] BRYANT NUNEZ 2022 90 [place] MELATONIN 5MG CAP/TAB TAKE TWO CAPSULE/ TABLET BY MOUTH ONCE DAILY ORAL ACTIVE LEONOR RICHARDS 2020 [place] MIRTAZAPINE 15MG TAB TAKE ONE-HALF TABLET BY MOUTH AT BEDTIME FOR DEPRESSI ON/MOOD ORAL DISCONT INUED BY PROVIDE R 04/18/2025 [id number] 4 Nissa SPENCER 2023 30 [place] MIRTAZAPINE 15MG TAB TAKE ONE-HALF TABLET BY MOUTH AT BEDTIME FOR 7 DAYS, THEN TAKE ONE TABLET AT BEDTIME FOR DEPRESSI ON/MOOD ORAL DISCONT INUED (EDIT) 09/30/2023 [id number] 3 Nissa SPENCER 2022 57 [place] MIRTAZAPINE 30MG TAB TAKE ONE-HALF TABLET BY MOUTH AT BEDTIME FOR DEPRESSI ON/MOOD ORAL DISCONT INUED (EDIT) 09/12/2024 [id number] 4 Nissa SPENCER 2022 30 [place] SERTRALINE HCL 25MG TAB TAKE ONE TABLET BY MOUTH ONCE DAILY ORAL DISCONT INUED 05/21/2024 [id number] Nissa SPENCER 2022 30 [place] SIMVASTATIN 40MG TAB TAKE ONE-HALF TABLET BY MOUTH ONCE DAILY FOR CHOLESTE ROL ORAL ACTIVE 05/13/2025 [id number] Anastasiia FINLEY 2023 45 [place] SIMVASTATIN 40MG TAB TAKE ONE-HALF TABLET BY MOUTH EVERY OTHER DAY FOR CHOLESTE ROL ORAL 11/09/2023 [id number] BRYANT NUNEZ S 2022 23 [place] TERAZOSIN HCL 10MG CAP TAKE ONE CAPSULE BY MOUTH AT BEDTIME ORAL ACTIVE 11/23/2024 [id number] ASHLEY VYAS MD 2023 90 [facility] TERAZOSIN HCL 10MG CAP TAKE ONE CAPSULE BY MOUTH EVERY EVENING AT BEDTIME ORAL DISCONT INUED 03/05/2024 [id number] ASHLEY VYAS MD 2022 90 [facility] Allergies, Adverse Reactions, Alerts Combined list of allergies from Department of Defense and Veterans Affairs facilities. It does not include entries that were removed or entered in error. Substance Category Reaction Severity Reaction type Status Date Reported Comments Source PAXIL Propensity to adverse reactions to drug (finding) Anxiety active 8 [facility] Immunizations Combined list of available immunizations from the Department of Defense and Veterans Affairs facilities. Immunization Series Date Given Administered By Site Reaction Lot Number CVX Code Drug Vocal Artist Status Comments Source RSV, RECOMBINANT, PROTEIN SUBUNIT RSVPREF3, ADJUVANT RECONSTITUTED , 0.5 ML, PF 2024 SILVIA SCHULZ RIGHT DELTO ID [id number] 303 complet ed [facility] INFLUENZA, UNSPECIFIED FORMULATION 2023 88 complet ed [facility] PNEUMOCOCCAL POLYSACCHARID E PPV23 2023 JA SIMEON HELLE LEFT DELTO ID [id number] 33 complet ed [facility] COVID-19 (MODERNA), MRNA, LNP-S, PF, 50 MCG/0.5 ML (AGES 12+ YEARS) 1 2023 JA SIMEON HELSIRENA LEFT DELTO ID [id number] 312 complet ed [place] INFLUEN[place], HIGH-DOSE, QUADRIVALENT 2022 CRISTINO LILLY LEFT DELTO ID [id number] 197 complet ed [place] INFLUENZA, UNSPECIFIED FORMULATION 2022 88 complet ed [facility] INFLUENZA VACCINE, QUADRIVALENT, ADJUVANTED 2021 205 complet ed [facility] COVID-19 (PFIZER), MRNA, LNP-S, PF, 30 MCG/0.3 ML DOSE 3 2020 208 complet ed [facility] PNEUMOCOCCAL CONJUGATE PCV 13 2020 133 complet ed [facility] ZOSTER RECOMBINANT 2 2020 187 complet ed [facility] COVID-19 (PFIZER), MRNA, LNP-S, PF, 30 MCG/0.3 ML DOSE 2 2020 208 complet ed [employer] COVID-19 (PFIZER), MRNA, LNP-S, PF, 30 MCG/0.3 ML DOSE 1 2020 208 complet ed [employer] TD(ADULT) UNSPECIFIED FORMULATION 2019 139 complet ed Site: Right Deltoid [place] ZOSTER RECOMBINANT 1 2019 187 complet ed [place] INFLUENZA, INJECTABLE, QUADRIVALENT, PRESERVATIVE FREE 2019 150 complet ed [place] INFLUENZA, INJECTABLE, QUADRIVALENT, PRESERVATIVE FREE 2018 150 complet ed [place] INFLUENZA, INJECTABLE, QUADRIVALENT 2018 158 complet ed [place] PNEUMOCOCCAL POLYSACCHARID E PPV23 2017 33 complet ed [place] INFLUENZA, SEASONAL, INJECTABLE 2016 141 complet ed Site: Left Deltoid [place] ZOSTER (SHINGLES) (HISTORICAL) 2015 121 complet ed Proximal Left Arm [facility] FLU,3 YRS (HISTORICAL) 2015 88 complet ed Site: Right Deltoid [facility] FLU,3 YRS (HISTORICAL) 2015 88 complet ed Site: Left Deltoid [facility] FLU,3 YRS (HISTORICAL) 2012 88 complet ed [facility] FLU,3 YRS (HISTORICAL) 2012 88 complet ed Site: Right Deltoid [facility] DTAP, UNSPECIFIED FORMULATION 2009 107 complet ed Site: Left Deltoid [facility] FLU,3 YRS (HISTORICAL) 2008 88 complet ed Site: Left Deltoid [facility] INFLUENZA, UNSPECIFIED FORMULATION 2005 88 complet ed [facility] Results Combined list of recent chemistry, hematology and other laboratory results from Department of Defense and Veterans Affairs, ranging from 15 months to all on record, depending upon the facility. Order Name Results Value Reference Range Date Interpretation Specimen Comments Source HEMOGLOBI N A1C PANEL HEMOGLOBIN A1C/HEMOGLO BIN.TOTAL IN BLOOD BY HPLC 4.7 4.0 - 5.6 05/12 Specimen Type: BLOOD Comment: Values obtained from A1C measurement s can vary. For atypical A1C assays, a reported value of 7.0 could actually be between 6.72 and 7.28 if measured by a reference method. A reported value of 9.0 could actually be between 8.73 and 9.27. Ref: [email or web address] Ordering Provider: SEAN FINLEY A Report Released Date/Time: May 12, 2024 11:20 AM Reporting Lab: [address] [address] Performing Lab: [address] [address] [place] CALCIUM CALCIUM [MASS/VOLUM E] IN SERUM OR PLASMA 9.0 mg/dL 8.5 - 10.2 05/12 Specimen Type: SERUM No comment entered. Ordering Provider: SEAN FINLEY A Report Released Date/Time: May 12, 2024 11:20 AM Reporting Lab: [address] [address] Performing Lab: [address] [address] [place] VITAMIN D (25-OH) 25-HYDROXYV ITAMIN D3 [MASS/VOLUM E] IN SERUM OR PLASMA 42 ng/mL 20 - 50 05/12 Specimen Type: SERUM No comment entered. Ordering Provider: SEAN FINLEY A Report Released Date/Time: May 12, 2024 11:20 AM Reporting Lab: [address] [address] Performing Lab: [address] [address] [place] VITAMIN B12 COBALAMIN (VITAMIN B12) [MASS/VOLUM E] IN SERUM OR PLASMA 723 pg/mL 200 - 900 05/12 Specimen Type: SERUM No comment entered. Ordering Provider: SEAN FINLEY A Report Released Date/Time: May 12, 2024 11:20 AM Reporting Lab: [address] [address] Performing Lab: [address] [address] [place] LIPID PANEL, NON FASTING CHOLESTEROL [MASS/VOLUM E] IN SERUM OR PLASMA 182 mg/dL 05/12 Specimen Type: SERUM No comment entered. Ordering Provider: SEAN FINLEY A Report Released Date/Time: May 12, 2024 11:20 AM Reporting Lab: [facility] [address] [address] Performing Lab: [facility] [address] [address] [place] LIPID PANEL, NON FASTING TRIGLYCERID E [MASS/VOLUM E] IN SERUM OR PLASMA 46 mg/dL 0 - 150 05/12 Specimen Type: SERUM No comment entered. Ordering Provider: SEAN FINLEY A Report Released Date/Time: May 12, 2024 11:20 AM Reporting Lab: [facility] [address] [address] Performing Lab: [address] [address] [place] LIPID PANEL, NON FASTING CHOLESTEROL IN LDL [MASS/VOLUM E] IN SERUM OR PLASMA BY CALCULATION 94 mg/dL 0 - 129 05/12 Specimen Type: SERUM No comment entered. Ordering Provider: SEAN FINLEY A Report Released Date/Time: May 12, 2024 11:20 AM Reporting Lab: [address] [address] Performing Lab: [address] [address] [place] LIPID PANEL, NON FASTING CHOLESTEROL .TOTAL/CHOL ESTEROL IN HDL [MASS RATIO] IN SERUM OR PLASMA 2.3 05/12 Specimen Type: SERUM No comment entered. Ordering Provider: SEAN FINLEY A Report Released Date/Time: May 12, 2024 11:20 AM Reporting Lab: [facility] [address] [address] Performing Lab: [facility] [address] [address] [place] LIPID PANEL, NON FASTING CHOLESTEROL IN HDL [MASS/VOLUM E] IN SERUM OR PLASMA 79 mg/dL 40 - 60 05/12 H Specimen Type: SERUM No comment entered. Ordering Provider: SEAN FINLEY A Report Released Date/Time: May 12, 2024 11:20 AM Reporting Lab: [facility] [address] [address] Performing Lab: [facility] [address] [address] [place] MAGNESIUM MAGNESIUM [MASS/VOLUM E] IN SERUM OR PLASMA 1.8 mg/dL 1.6 - 2.6 05/12 Specimen Type: SERUM No comment entered. Ordering Provider: SEAN FINLEY A Report Released Date/Time: May 12, 2024 11:20 AM Reporting Lab: [facility] [address] [address] Performing Lab: [facility] CAMPUSUSE[address] [address] [place] PSA PROSTATE SPECIFIC AG [MASS/VOLUM E] IN SERUM OR PLASMA 1.44 ng/mL 0.00 - 4.00 05/12 Specimen Type: SERUM No comment entered. Ordering Provider: SEAN FINLEY A Report Released Date/Time: May 12, 2024 11:20 AM Reporting Lab: [facility] [address] [address] Performing Lab: [place] [facility] [address] [address] [place] MICROALBU MIN CREATININ E RATIO PANEL MICROALBUMI N/CREATININ E [MASS RATIO] IN URINE 62.9 mg/g 0 - 29.9 05/12 H Specimen Type: URINE No comment entered. Ordering Provider: SEAN FINLEY A Report Released Date/Time: May 12, 2024 11:20 AM Reporting Lab: [facility] [place] [facility] [address] [address] Performing Lab: [place] [facility] [address] [address] [place] MICROALBU MIN CREATININ E RATIO PANEL MICROALBUMI N [MASS/VOLUM E] IN URINE 5.6 mg/dL 05/12 Specimen Type: URINE No comment entered. Ordering Provider: SEAN FINLEY A Report Released Date/Time: May 12, 2024 11:20 AM Reporting Lab: [facility] [address] [address] Performing Lab: [facility] [address] [address] [place] MICROALBU MIN CREATININ E RATIO PANEL CREATININE [MASS/VOLUM E] IN URINE 89.09 mg/dL 05/12 Specimen Type: URINE No comment entered. Ordering Provider: SEAN FINLEY A Report Released Date/Time: May 12, 2024 11:20 AM Reporting Lab: [facility] [address] [address] Performing Lab: [address] [address] [place] LIVER FUNCTION PROTEIN [MASS/VOLUM E] IN SERUM OR PLASMA 6.4 g/dL 6.0 - 8.3 05/12 Specimen Type: SERUM No comment entered. Ordering Provider: SEAN FINLEY A Report Released Date/Time: May 12, 2024 11:20 AM Reporting Lab: [facility] [address] [address] Performing Lab: [facility] [address] [address] [place] LIVER FUNCTION ALBUMIN [MASS/VOLUM E] IN SERUM OR PLASMA 3.9 g/dL 3.5 - 5.0 05/12 Specimen Type: SERUM No comment entered. Ordering Provider: SEAN FINLEY A Report Released Date/Time: May 12, 2024 11:20 AM Reporting Lab: [facility] [address] [address] Performing Lab: [facility] [address] [address] [place] LIVER FUNCTION ALKALINE PHOSPHATASE [ENZYMATIC ACTIVITY/VO LUME] IN SERUM OR PLASMA 52 U/L 40 - 150 05/12 Specimen Type: SERUM No comment entered. Ordering Provider: SEAN FINLEY A Report Released Date/Time: May 12, 2024 11:20 AM Reporting Lab: [place] [facility] [place] [address] [address] Performing Lab: [place] [facility] [place] [address] [address] [place] LIVER FUNCTION ASPARTATE AMINOTRANSF ERASE [ENZYMATIC ACTIVITY/VO LUME] IN SERUM OR PLASMA 19 U/L 5 - 34 05/12 Specimen Type: SERUM No comment entered. Ordering Provider: SEAN FINLEY A Report Released Date/Time: May 12, 2024 11:20 AM Reporting Lab: [place] [facility] [address] [address] Performing Lab: [place] [facility] CAMPUSUSE[address] [address] [place] LIVER FUNCTION ALANINE AMINOTRANSF ERASE [ENZYMATIC ACTIVITY/VO LUME] IN SERUM OR PLASMA 19 U/L 05/12 Specimen Type: SERUM No comment entered. Ordering Provider: SEAN FINLEY A Report Released Date/Time: May 12, 2024 11:20 AM Reporting Lab: [place] [facility] [place] [address] [address] Performing Lab: [place] [facility] [place] [address] [address] [place] LIVER FUNCTION BILIRUBIN.T OTAL [MASS/VOLUM E] IN SERUM OR PLASMA 0.4 mg/dL 0.2 - 1.2 05/12 Specimen Type: SERUM No comment entered. Ordering Provider: SEAN FINLEY A Report Released Date/Time: May 12, 2024 11:20 AM Reporting Lab: [place] [facility] [address] [address] Performing Lab: [place] [facility] [address] [address] [place] CBC AND DIFF (AUTO) LEUKOCYTES [#/VOLUME] IN BLOOD BY AUTOMATED COUNT 5.65 10*3/u L 4.50 - 11.00 05/12 Specimen Type: BLOOD No comment entered. Ordering Provider: SEAN FINLEY A Report Released Date/Time: May 12, 2024 11:20 AM Reporting Lab: [facility] [address] [address] Performing Lab: [place] [facility] [address] [address] [place] CBC AND DIFF (AUTO) ERYTHROCYTE S [#/VOLUME] IN BLOOD BY AUTOMATED COUNT 4.59 10*6/u L 4.23 - 5.66 05/12 Specimen Type: BLOOD No comment entered. Ordering Provider: SEAN FINLEY A Report Released Date/Time: May 12, 2024 11:20 AM Reporting Lab: [facility]USUSE[address] [address] Performing Lab: [facility]USUSE[address] [address] [place] CBC AND DIFF (AUTO) HEMOGLOBIN [MASS/VOLUM E] IN BLOOD 14.2 g/dL 12.8 - 17 05/12 Specimen Type: BLOOD No comment entered. Ordering Provider: SEAN FINLEY A Report Released Date/Time: May 12, 2024 11:20 AM Reporting Lab: [facility] [address] [address] Performing Lab: [facility]USUSETS [address] [address] [place] CBC AND DIFF (AUTO) HEMATOCRIT [VOLUME FRACTION] OF BLOOD BY AUTOMATED COUNT 41.8 39.2 - 50.4 05/12 Specimen Type: BLOOD No comment entered. Ordering Provider: SEAN FINLEY A Report Released Date/Time: May 12, 2024 11:20 AM Reporting Lab: [facility] [address] [address] Performing Lab: [facility] [address] [address] [place] CBC AND DIFF (AUTO) MCV [ENTITIC VOLUME] BY AUTOMATED COUNT 91.1 fL 82 - 99 05/12 Specimen Type: BLOOD No comment entered. Ordering Provider: SEAN FINLEY A Report Released Date/Time: May 12, 2024 11:20 AM Reporting Lab: [facility] [place] [facility] [address] [address] Performing Lab: [facility] [place] [facility] [address] [address] [place] CBC AND DIFF (AUTO) MCHC [MASS/VOLUM E] BY AUTOMATED COUNT 34.0 g/dL 30.8 - 35.1 05/12 Specimen Type: BLOOD No comment entered. Ordering Provider: SEAN FINLEY A Report Released Date/Time: May 12, 2024 11:20 AM Reporting Lab: [facility] [address] [address] Performing Lab: [facility] [address] [place] CBC AND DIFF (AUTO) PLATELETS [#/VOLUME] IN BLOOD BY AUTOMATED COUNT 212 10*3/u L 140 - 360 05/12 Specimen Type: BLOOD No comment entered. Ordering Provider: SEAN FINLEY A Report Released Date/Time: May 12, 2024 11:20 AM Reporting Lab: [facility] [address] [address] Performing Lab: [facility] [address] [address] [place] CBC AND DIFF (AUTO) ERYTHROCYTE DISTRIBUTIO N WIDTH [RATIO] BY AUTOMATED COUNT 11.9 12.0 - 16.0 05/12 L Specimen Type: BLOOD No comment entered. Ordering Provider: SEAN FINLEY A Report Released Date/Time: May 12, 2024 11:20 AM Reporting Lab: [facility] [place] [address] [address] Performing Lab: [facility] [place] [address] [address] [place] CBC AND DIFF (AUTO) MONOCYTES [#/VOLUME] IN BLOOD BY AUTOMATED COUNT 0.66 10*3/u L 0.30 - 1.10 05/12 Specimen Type: BLOOD No comment entered. Ordering Provider: SEAN FINLEY A Report Released Date/Time: May 12, 2024 11:20 AM Reporting Lab: [facility] [place] [facility] [address] [address] Performing Lab: [facility] [place] [facility] [address] [address] [place] CBC AND DIFF (AUTO) MCH [ENTITIC MASS] BY AUTOMATED COUNT 30.9 pg 26.2 - 32.6 05/12 Specimen Type: BLOOD No comment entered. Ordering Provider: SEAN FINLEY A Report Released Date/Time: May 12, 2024 11:20 AM Reporting Lab: [facility] [place] [facility] [address] [address] Performing Lab: [facility] [place] [address] [address] [place] CBC AND DIFF (AUTO) NEUTROPHILS /100 LEUKOCYTES IN BLOOD BY AUTOMATED COUNT 62.9 43.7 - 75.8 05/12 Specimen Type: BLOOD No comment entered. Ordering Provider: SEAN FINLEY A Report Released Date/Time: May 12, 2024 11:20 AM Reporting Lab: [facility] [place] [facility] [address] [address] Performing Lab: [facility] [place] [address] [address] [place] CBC AND DIFF (AUTO) LYMPHOCYTES /100 LEUKOCYTES IN BLOOD BY AUTOMATED COUNT 23.2 14.0 - 42.3 05/12 Specimen Type: BLOOD No comment entered. Ordering Provider: SEAN FINLEY A Report Released Date/Time: May 12, 2024 11:20 AM Reporting Lab: [facility] [place] [address] [address] Performing Lab: [facility] [place] [address] [address] [place] CBC AND DIFF (AUTO) MONOCYTES/1 00 LEUKOCYTES IN BLOOD BY AUTOMATED COUNT 11.7 5.1 - 13.7 05/12 Specimen Type: BLOOD No comment entered. Ordering Provider: SEAN FINLEY A Report Released Date/Time: May 12, 2024 11:20 AM Reporting Lab: [facility] [place] [facility] [address] [address] Performing Lab: [facility] [address] [address] [place] CBC AND DIFF (AUTO) EOSINOPHILS /100 LEUKOCYTES IN BLOOD BY AUTOMATED COUNT 1.2 0.4 - 6.8 05/12 Specimen Type: BLOOD No comment entered. Ordering Provider: SEAN FINLEY A Report Released Date/Time: May 12, 2024 11:20 AM Reporting Lab: [facility] [address] [address] Performing Lab: [facility] [address] [address] [place] CBC AND DIFF (AUTO) BASOPHILS/1 00 LEUKOCYTES IN BLOOD BY AUTOMATED COUNT 0.5 0.1 - 2.0 05/12 Specimen Type: BLOOD No comment entered. Ordering Provider: SEAN FINLEY A Report Released Date/Time: May 12, 2024 11:20 AM Reporting Lab: [facility] [address] [address] Performing Lab: [facility] [address] [address] [place] CBC AND DIFF (AUTO) NEUTROPHILS [#/VOLUME] IN BLOOD BY AUTOMATED COUNT 3.55 10*3/u L 2.20 - 7.60 05/12 Specimen Type: BLOOD No comment entered. Ordering Provider: SEAN FINLEY A Report Released Date/Time: May 12, 2024 11:20 AM Reporting Lab: [facility] [address] [address] Performing Lab: [facility] [address] [address] [place] CBC AND DIFF (AUTO) LYMPHOCYTES [#/VOLUME] IN BLOOD BY AUTOMATED COUNT 1.31 10*3/u L 1.00 - 3.20 05/12 Specimen Type: BLOOD No comment entered. Ordering Provider: SEAN FINLEY A Report Released Date/Time: May 12, 2024 11:20 AM Reporting Lab: [facility] [address] [address] Performing Lab: [facility] [address] [address] [place] CBC AND DIFF (AUTO) EOSINOPHILS [#/VOLUME] IN BLOOD BY AUTOMATED COUNT 0.07 10*3/u L 0.03 - 0.44 05/12 Specimen Type: BLOOD No comment entered. Ordering Provider: SEAN FINLEY A Report Released Date/Time: May 12, 2024 11:20 AM Reporting Lab: [facility] [address] [address] Performing Lab: [facility] [address] [address] [place] CBC AND DIFF (AUTO) BASOPHILS [#/VOLUME] IN BLOOD BY AUTOMATED COUNT 0.03 10*3/u L 0.01 - 0.13 05/12 Specimen Type: BLOOD No comment entered. Ordering Provider: SEAN FINLEY A Report Released Date/Time: May 12, 2024 11:20 AM Reporting Lab: [facility] [address] [address] Performing Lab: [facility] [address] [address] [place] CBC AND DIFF (AUTO) IMMATURE GRANULOCYTE S/100 LEUKOCYTES IN BLOOD BY AUTOMATED COUNT 0.5 0.0 - 0.7 05/12 Specimen Type: BLOOD No comment entered. Ordering Provider: SEAN FINLEY A Report Released Date/Time: May 12, 2024 11:20 AM Reporting Lab: [facility] [place] [address] [address] Performing Lab: [facility] [address] [address] [place] CBC AND DIFF (AUTO) IMMATURE GRANULOCYTE S [#/VOLUME] IN BLOOD 0.03 10*3/u L 0.00 - 0.06 08/19 /2024 Specimen Type: BLOOD No comment entered. Ordering Provider: SEAN FINLEY A Report Released Date/Time: May 12, 2024 11:20 AM Reporting Lab: [address] [address] Performing Lab: [address] [address] [place] CBC AND DIFF (AUTO) NRBC % 0.0 0.0 - 0.0 05/12 Specimen Type: BLOOD No comment entered. Ordering Provider: SEAN FINLEY A Report Released Date/Time: May 12, 2024 11:20 AM Reporting Lab: [address] [address] Performing Lab: [address] [address] [place] CBC AND DIFF (AUTO) NRBC, ABS 0.00 10*3/u L 0.00 - 0.00 05/12 Specimen Type: BLOOD No comment entered. Ordering Provider: SEAN FINLEY A Report Released Date/Time: May 12, 2024 11:20 AM Reporting Lab: [address] [address] Performing Lab: [address] [address] [facility] V[facility] Signs Combined list of inpatient and outpatient Vital Signs from Department of Defense and Veterans Affairs, ranging from 12 months to all on record, depending upon the facility. Vital Sign Value Date Comments Source SYSTOLIC BLOOD PRESSURE 121 10/09/2024 09:40:22 [place] DIASTOLIC BLOOD PRESSURE 67 10/09/2024 09:40:22 [place] PULSE OXIMETRY 98 10/09/2024 09:40:22 [facility] WE[facility] 160 10/09/2024 09:40:22 [facility] BMI 22kg/m2 10/09/2024 09:40:22 [facility] TEMPERATURE 97 10/09/2024 09:40:22 [facility] PULSE 82 10/09/2024 09:40:22 [place] [facility] SYSTOLIC BLOOD PRESSURE 128 02/01/2024 13:07:16 [place] DIASTOLIC BLOOD PRESSURE 64 02/01/2024 13:07:16 [place] PULSE OXIMETRY 97 02/01/2024 13:07:16 [place] WEIGHT 171 02/01/2024 13:07:16 [place] BMI 24kg/m2 02/01/2024 13:07:16 [place] PAIN 0 02/01/2024 13:07:16 [place] HEIGHT 71 02/01/2024 13:07:16 [place] TEMPERATURE 98.3 02/01/2024 13:07:16 [place] PULSE 65 02/01/2024 13:07:16 [place] RESPIRATION 17 02/01/2024 13:07:16 [facility] SYSTOLIC BLOOD PRESSURE 118 01/11/2024 14:12:00 [place] DIASTOLIC BLOOD PRESSURE 66 01/11/2024 14:12:00 [place] PULSE 87 01/11/2024 14:12:00 [place] [facility] Encounters Combined list of: 1) Encounters from Department of Veterans Affairs facilities going back up to thelast 18 months. 2) Encounters from the Department of Defense facilities going back up to 280 months. Location Location Details Encounter Type Encounter Number Reason For Visit Attending Provider ADM Date DC Date Status Disposition Source [place] [facility] [facility] [place] Outpatient Encounter [id number] 04/18 [place] [facility] [facility] [facility] [place] Outpatient Encounter [id number] 04/18 [place] [facility] [facility] [place] [place] 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
[facility] [place] [facility] [place] [facility] [place] Outpatient Encounter [id number] 05/23 [place] [facility] [place] [facility] [place] OFFICE O/P EST MOD 30-39 MIN [id number] Diagnos is: ICD-10- CM F41.9 Anxiety disorde r, unspeci fied
NUNEZ,ADR OJ S 06/12 [facility] [place] [facility] [place] [facility] [place] Outpatient Encounter [id number] 06/19 [place] [facility] [place] [facility] [place] OFF/OP EST MAY X REQ PHY/QHP [id number] Diagnos is: ICD-10- CM I10 Essenti al (primar y) hyperte nsion<b r/> BHASKAR PETTIT TIN 06/27 [facility] [place] OFF[place] O/P EST MOD 30-39 MIN [id number] Diagnos is: ICD-10- CM F41.9 Anxiety disorde r, unspeci fied
ST GONZALO SPENCER G 08/01 [facility] [place] OFF[place] O/P EST MOD 30-39 MIN [id number] Diagnos is: ICD-10- CM F41.9 Anxiety disorde r, unspeci fied
ST GONZALO SPENCER G 09/12 [facility] [facility] [facility] [place] Outpatient Encounter [id number] 09/14 [facility] [place] [facility] Outpatient Encounter [id number] 09/24 [facility] [place] [facility] Encounter [id number] 09/28 [facility] [place] [facility] En[facility] [id number] 11/16 [facility] [place] [place] OFF/OP EST MAY X REQ PHY/QHP [id number] Diagnos is: ICD-10- CM Z23 Encount er for immuniz ation<b r/> JAMES SIMEON 11/20 [place] [facility] Out[facility] Encounter [id number] 11/22 [facility] [place] [facility] [place] OFF[place] O/P EST MOD 30 MIN [id number] Diagnos is: ICD-10- CM F41.9 Anxiety disorde r, unspeci fied
ST GONZALO SPENCER 12/13 [place] [facility] Encounter [id number] VALENTE MENDENHALL 12/19 [facility] [place] [facility] [place] Out[place] Encounter [id number] 12/19 [place] [facility] Out[facility] Encounter [id number] 12/27 [facility] [place] [facility] [facility] Encounter [id number] 01/07 [facility] [place] [facility] [place] OFF/OP EST MAY X REQ PHY/QHP [id number] Diagnos is: ICD-10- CM Z01.30 Encount er for exam of blood pressur e w/o abnorma l finding s
[place]IME[place] OFF[place] O/P EST HI 40 MIN [id number] Diagnos is: ICD-10- CM I10 Essenti al (primar y) hyperte nsion<b r/> KRAUSE,JOHNT ORIA J 01/31 [facility] [place] [facility] [place] [facility] Outpatient Encounter [id number] [place] [facility] [place] [facility] [place] [facility] Outpatient Encounter [id number] 02/28 [place] [facility] [place] [facility] [place] [place] [facility] [place] Outpatient Encounter [id number] [place] [facility] [place] [facility] OFFICE O/P EST MOD 30 MIN [id number] Diagnos is: ICD-10- CM H25.13 Age-rel ated nuclear catarac t, bilater al
[place] PEREZ [facility] [place] [facility] [place] [facility] [place] Outpatient Encounter [id number] 1.04/16 [place] [facility] [place] [facility] LD OFFICE O/P EST MOD 30 MIN [id number] Diagnos is: ICD-10- CM F32.A Depress ion, unspeci fied
ST GONZALO SPENCER G 04/17 [facility] [place] OFFICE O/P EST LOW 20 MIN [id number] Diagnos is: ICD-10- CM I10 Essenti al (primar y) hyperte nsion<b r/> TUSHARDA VID A 05/12 [place] [facility] QNHP OL DIG ASSMT&MGMT 21+ [id number] Diagnos is: ICD-10- CM Z12.2 Encntr screen for maligna nt neoplas m of respira tory organs< br/> VALERY ARELLANO 05/13 [facility] [place] [facility] En[facility] [id number] 05/21 [facility] [place] [facility] [facility] Encounter [id number] 05/30 [facility] [place] [facility] [place] QNHP OL DIG ASSMT&MGMT 5-10 [id number] Diagnos is: ICD-10- CM Z12.2 Encntr screen for maligna nt neoplas m of respira tory organs< br/> ZABRINA CORTES 05/30 [facility] [place] [facility] [facility] Encounter [id number] 1. JAMES SIMEON 06/02 [facility] [place] [facility] Encounter [id number] 06/02 [facility] [place] [facility] Encounter [id number] 06/24 [facility] [place] [place] [facility] Out[facility] Encounter [id number] 07/23 [facility] [place] [facility] OFFICE O/P EST MOD 30 MIN [id number] Diagnos is: ICD-10- CM F32.A Depress ion, unspeci fied
ST GONZALO SPENCER 07/23 [facility] [facility] [place] [facility] Outpatient Encounter [id number] 09/02 [place] [facility] [place] [facility] [place] [facility] Outpatient Encounter [id number] 09/30 [facility] [place] [facility] [place] Outpatient Encounter [id number] 10/09 [facility] [place] [facility] IMMUNIZATI ON ADMIN [id number] EMA FINLEYD A 10/09 [place] [facility] Social History Combined list of available smoking, tobacco, and other social history from Department of Defense and Veterans Affairs facilities. Social History Type Response Date Comment Source Tobacco smoking status [facility]-TOBACCO NEVER USED CIGARETTES 10/09/2024 [place] [facility] History of tobacco use AK-TOBACCO NEVER USED OTHER TYPE 10/09/2024 [place] [facility] History of tobacco use [place]-TOBACCO QUIT 15 YRS OR MORE 06/27/2023 [place] History of tobacco use AK-TOBACCO FORMER USER 04/28/2022 [place] History of tobacco use AK-TOBACCO FORMER USER 02/14/2021 [place] History of tobacco use AK-TOBACCO QUIT 15 YRS OR MORE 02/12/2020 [facility] [place] [facility] History of tobacco use VA-TOBACCO FORMER USER 01/16/2019 [place] History of tobacco use QUIT TOBACCO USE > 7 YEARS AGO 01/29/2018 [place] History of tobacco use QUIT TOBACCO USE > 7 YEARS AGO 02/15/2017 Pt. states he quit smoking more than 20 years. [place] History of tobacco use QUIT TOBACCO USE > 7 YEARS AGO 10/15/2015 [place] [facility] History of tobacco use QUIT TOBACCO USE > 7 YEARS AGO 02/16/2011 20 years ago [facility] History of tobacco use V1-PT DECLINES TOBACCO CESSATION MEDS 01/25/2010 [facility] History of tobacco use V1-PT THINKING ABOUT QUIT TOBACCO USE 05/28/2009 [facility] History of tobacco use CURRENT SMOKER 05/28/2009 [facility]CC[facility] History of tobacco use FORMER SMOKER - NONE FOR >7 YEARS 05/10/2006 [facility] Plan of Care List of future care activities from Department of [facility] Affairs facilities. Additional future care activities may be listed in the Assessment and Plan section. Date/Time Care Activity Care Activity Detail Facili ty 10/17/2024 AMBULATORY - MEDICINE AMBULATORY - MEDICI NE [facility] 11/07/2024 AMBULATORY - PSYCHIATRY AMBULATORY - PSYC [facility] 03/05/2025 AMBULATORY - MEDICINE AMBULATORY - MEDICI NE [place] 09/30/2024 Consult Order [facility] Cons [place] [facility] [place]
--- OUTSIDE RECORDS SUMMARY | 2024-10-14 14:20 | XMS_ITS | Encounter Summary ---
Author Name [facility] [place] [facility] [place] Address [address] [place] [address] Care Team Providers Care Last Code Striper Name Role Phone AMEE FINLEY Primary Care [...] Aldridge's Name Patient's Relationship to Policy Aldridge [employer] [facility] (WNR) MEDICARE ADVANTAGE IN INDIV IDUAL - [place] Sep 24, 2022 [id number] [phone] JING MUNIZ RK PATIENT [employer] [facility] (WNR) MEDICARE ADVANTAGE [facility] (WNR) Sep 24, 2022 [id number] [phone] JING MUNIZ RK PATIENT MEDICAID MEDICAID [facility] Sep 24, 2015 MEDICAI D [id number] JING MUNIZ RK PATIENT Selected Encounter This section includes the information on record at [place] for the Encounter. Date/Time Encounter Type Encounter Description Reason Pro vider Source Sep 30, 2024 02:26 PM Outpatient Encounter PRIMARY CARE/MEDICINE IHE Encounter Template Text not used by [place] Plan of Treatment: Future Appointments (+ 6 months) and Future Tests (+/- 45 days) The Plan of Treatment section includes future care activities for the patient from all [place] [facility] This section includes future appointments and future orders which are active, pending or scheduled. Future Appointments This section includes appointments that were scheduled to occur 6 months from the date of the Encounter, up to a maximum of 20 appointments. The data comes from all [place] treatment facilities. Appointment Date/Time Appointment Type Appointme nt Facility Name Oct 09, 2024 09:30 AM AMBULATORY - MEDICINE [facility] Oct 17, 2024 02:00 PM AMBULATORY - MEDICINE [facility] Nov 07, 2024 11:00 AM AMBULATORY - PSYCHIATRY [facility] Mar 05, 2025 11:30 AM AMBULATORY - MEDICINE [facility] Active, Pending, and Scheduled Orders This section includes a listing of several types of active, pending, and scheduled orders, including clinic medications orders, diagnostic test orders, procedure orders and consult orders; where the start date of the order is 45 days before the date of the Encounter or 45 days after the date of theEncounter. The data comes from all [facility] facilities. Test Date/Time Test Type Test Details Facility Name Sep 30, 2024 02:55 PM Consult Order COMMUNITY CARE-UROLOGY Cons Spreader Operator's Hector [facility] Social History: Smoking Status (Most current) and Tobacco Use (All prior to encounter date) This section includes the most current, and the historical, smoking and tobacco- related health factors from the [place] facility where the Encounter took place. Current Smoking Status This section includes the most current smoking, or tobacco-related health factor, from the [place] facility where the Encounter took place. Date/Time Current Smoking Status Comment Facil ity February 12, 2020 01:13 PM VA-TOBACCO QUIT 15 YRS OR MORE [facility] Tobacco Use History This section includes a history of the smoking, or tobacco-related health factors, that were collected on or before the date of the Encounter. The data comes from the [place] facility where the Encounter took place. Date/Time Smoking Status/Tobacco Use Comment F acility February 12, 2020 01:13 PM [facility]BACCO [facility]IT 15 YRS OR MORE [facility] Oct 15, 2015 10:23 AM QUIT TOBACCO USE > 7 YEARS AGO [facility] February 16, 2011 01:33 PM QUIT TOBACCO USE > 7 YEARS AGO 20 years ago [facility] [place] [facility] January 25, 2010 10:00 AM V1-PT DECLINES TOB ACCO CESSATION MEDS [facility] [place] [facility] January 25, 2010 10:00 AM V1-PT THINKING ABO UT [facility]IT [facility] May 28, 2009 06:20 PM V1-PT DECLINES TOB ACCO CESSATION MEDS [facility] [place] [facility] May 28, 2009 06:20 PM V1-PT THINKING ABO UT QUIT [facility]AC[facility] May 28, 2009 02:45 PM CURRENT SMOKER OCCASIONAL [facility] Encounter Notes: All associated encounter notes This section contains the clinical notes associated to the Encounter. Date/Time Encounter Note(s) Provider Source Sep 30, 2024 02:33 PM ADMINISTRATIVE NOT E: LOCAL TITLE: ADMINISTRATIVE NOTE STANDARD TITLE: ADMINISTRATIVE NOTE DATE OF NOTE: SEP 30, 2024@14:33 ENTRY DATE: SEP 30, 2024@14:33:56 AUTHOR: RADHA STOREY EXP COSIGNER: URGENCY: STATUS: COMPLETED Continuation of care consult for urology requested via right fax folder. Consult placed, held for provider review and signature if appropriate. /lucas/ RDAHA STOREY REGISTERED NURSE Signed: 09/30/2024 14:35 RADHA STOREY EL RITO
--- OUTSIDE RECORDS SUMMARY | 2024-10-14 14:21 | XMS_ITS | Encounter Summary ---
Author Name [facility] [place] Organization [facility] [place] [place] Address [address] [place] [id number] Care Team Providers Care Master Machinist Name Role Phone AMEE FINLEY Primary Care [...] Name Patient's Relationship to Policy Aldridge AENA [facility] (WNR) MEDICARE ADVANTAGE [place] INDIV IDUAL - [place] Sep 24, 2022 [id number] [phone] JING MUNIZ RK PATIENT AETNA [facility] (WNR) MEDICARE ADVANTAGE [facility] (WNR) Sep 24, 2022 [id number] [phone] JING MUNIZ RK PATIENT MEDICAID MEDICAID [facility] Sep 24, 2015 MEDICAI D [id number] JING MUNIZ RK PATIENT Selected Encounter This section includes the information on record at [place] for the Encounter. Date/Time Encounter Type Encounter Description Reason Pro vider Source Oct 09, 2024 09:30 AM Outpatient Encounter PRIMARY CARE/MEDICINE IHE Encounter Template Text not used by [facility] Plan of Treatment: Future Appointments (+ 6 months) and Future Tests (+/- 45 days) The Plan of Treatment section includes [facility] care [facility] the [facility] [place] [facility] This section includes future appointments and future orders which are active, pending or scheduled. Future Appointments This section includes appointments that were scheduled to occur 6 months from the date of the Encounter, up to a maximum of 20 appointments. The data comes from all [place] treatment facilities. Appointment Date/Time Appointment Type Appointme nt Facility Name Oct 17, 2024 02:00 PM AM[facility]ULATORY [facility]INE [place] [facility] Nov 07, 2024 11:00 AM AMBULATORY - PSYCHIATRY [facility] Mar 05, 2025 11:30 AM AMBULATORY - MEDICINE [facility] Active, Pending, and Scheduled Orders This section includes a listing of several types of active, pending, and scheduled orders, including clinic medications orders, diagnostic test orders, procedure orders and consult orders; where the start date of the order is 45 days before the date of the Encounter or 45 days after the date of theEncounter. The data comes from all [place] treatment facilities. Test Date/Time Test Type Test Details Facility Name Sep 30, 2024 02:55 PM Consult Order [facility]OLOGY Cons Protein Scientist's Choice [facility] Vital Signs: All taken on the encounter date This section contains inpatient and outpatient Vital Signs collected on the date of the Encounter. Date/Time Temperature Pulse Blood Pressure Respiratory Rate SP02 Pain Height Weight Body Mass Index Source Oct 09, 2024 09:40 AM 97 82 121/67 98 160 22 [facility] [place] Social History: Smoking Status (Most current) and Tobacco Use (All prior to encounter date) This section includes the most current, and the historical, smoking and tobacco- related health factors from the [place] facility where the Encounter took place. Current Smoking Status This section includes the most current smoking, or tobacco-related health factor, from the [place] facility where the Encounter took place. Date/Time Current Smoking Status Comment Facil ity Jun 27, 2023 10:30 AM VA-TOBACCO FORMER USER [facility] Tobacco Use History This section includes a history of the smoking, or tobacco-related health factors, that were collected on or before the date of the Encounter. The data comes from the [place] facility where the Encounter took place. Date/Time Smoking Status/Tobacco Use Comment F acility Jun 27, 2023 10:30 AM [place]-TOBACCO QUIT 15 YRS OR MORE [facility] Apr 28, 2022 11:00 AM VA-TOBACCO FORMER USER [facility] Apr 28, 2022 11:00 AM VA-TOBACCO QUIT 15 YRS OR MORE [facility] February 14, 2021 11:30 AM VA-TOBACCO FORMER USER [facility] February 14, 2021 11:30 AM VA-TOBACCO QUIT 5 TO < 15 YRS [facility] Jan 16, 2019 11:56 AM VA-TOBACCO FORMER USER [facility] Jan 16, 2019 11:56 AM VA-TOBACCO QUIT 5 TO < 15 YRS [facility] January 29, 2018 09:04 AM QUIT TOBACCO USE > 7 YEARS AGO [facility] February 15, 2017 11:10 AM QUIT TOBACCO USE > 7 YEARS AGO Pt. states he quit smoking more than 20 years. [facility]
--- OUTSIDE RECORDS SUMMARY | 2024-10-14 14:21 | XMS_ITS ---
Author Name [facility] [place] [place] [facility] [place] [facility] [place] Address [address] [place] [address] Care Team Providers Care Plastics Process Hand Name Role Phone AMEE FINLEY Primary Care [...] Name Patient's Relationship to Policy Aldridge AETNA [facility] (WNR) MEDICARE ADVANTAGE ME INDIV IDUAL - [place] Sep 24, 2022 [id number] [phone] JING MUNIZ RK PATIENT AETNA [facility] (WNR) MEDICARE ADVANTAGE [facility] (WNR) Sep 24, 2022 [id number] [phone] JING MUNIZ RK PATIENT MEDICAID MEDICAID [facility] Sep 24, 2015 MEDICAI D [id number] JING MUNIZ RK PATIENT Selected Encounter This section includes the information on record at [place] for the Encounter. Date/Time Encounter Type Encounter Description Reason Provider Source Oct 09, 2024 09:41 AM IMMUNIZATION ADMIN PRIMARY CARE/MEDICINE ICD-10-CM Z23. Encounter for immunization AMEE FINLEY [facility] Encounter Template Text not used by [facility] Assessments - Encounter Diagnoses This section includes the primary and secondary diagnoses documented for the Encounter. Date/Time Primary/Secondary Diagnosis Diagnosis Name Provider Source Oct 09, 2024 09:41 AM SECONDARY Encounter for immunization SILVIA SCHULZ [facility] Plan of Treatment: Future Appointments (+ 6 months) and Future Tests (+/- 45 days) The Plan of Treatment section includes future care activities for the patient [facility] [place] [facility]. This section includes future appointments and future orders which are active, pending or scheduled. Future Appointments This section includes appointments that were scheduled to occur 6 months from the date of the Encounter, up to a maximum of 20 appointments. The data comes from all [place] treatment facilities. Appointment Date/Time Appointment Type Appointme nt Facility Name Oct 17, 2024 02:00 PM AMBULATORY - MEDICINE [facility] Nov 07, 2024 11:00 AM AMBULATORY - PSYCHIATRY [facility] Mar 05, 2025 11:30 AM AMBULATORY - MEDICINE [facility] Active, Pending, and Scheduled Orders This section includes a listing of several types of active, pending, and scheduled orders, including clinic medications orders, diagnostic test orders, procedure orders and consult orders; where the start date of the order is 45 days before the date of the Encounter or 45 days after the date of theEncounter. The data comes from all [place] treatment facilities. Test Date/Time Test Type Test Details Facility Name Sep 30, 2024 02:55 PM Consult Order [facility] Cons Trichologist's Choice [facility] Immunizations: All administered on the encounter date This section contains immunizations associated to the Encounter. Immunization Series Date Issued Reaction Comments RSV, RECOMBINANT, PROTEIN CONNELL BUNIT RSVPREF3, ADJUVANT RECONSTITUTED, 0.5 ML, PF Oct 09, 2024 Social History: Smoking Status (Most current) and Tobacco Use (All prior to encounter date) This section includes the most current, and the historical, smoking and tobacco- related health factors from the [place] facility where the Encounter took place. Current Smoking Status This section includes the most current smoking, or tobacco-related health factor, from the [place] facility where the Encounter took place. Date/Time Current Smoking Status Brittani barone Oct 09, 2024 09:41 AM [place]-TOBACCO NEVER U SED CIGARETTES [facility] Tobacco Use History This section includes a history of the smoking, or tobacco-related health factors, that were collected on or before the date of the Encounter. The data comes from the [place] facility where the Encounter took place. Date/Time Smoking Status/Tobacco Use Comment F leticia Oct 09, 2024 09:41 AM VA-TOBACCO NEVER U SED OTHER TYPE [facility] February 12, 2020 01:13 PM VA-TOBACCO FORMER USER [facility] February 12, 2020 01:13 PM VA-TOBACCO QUIT 15 YRS OR MORE [facility] Oct 15, 2015 10:23 AM QUIT TOBACCO USE > 7 YEARS AGO [facility] February 16, 2011 01:33 PM QUIT TOBACCO USE > 7 YEARS AGO 20 years ago [facility] January 25, 2010 10:00 AM V1-PT DECLINES TOB ACCO CESSATION MEDS [facility] January 25, 2010 10:00 AM V1-PT THINKING ABO UT QUIT TOBACCO USE [facility] May 28, 2009 06:20 PM V1-PT DECLINES TOB ACCO CESSATION MEDS [facility] May 28, 2009 06:20 PM V1-PT THINKING ABO UT QUIT TOBACCO USE [facility] May 28, 2009 02:45 PM CURRENT SMOKER OCCASIONAL [facility] Encounter Notes: All associated encounter notes This section contains the clinical notes associated to the Encounter. Date/Time Encounter Note(s) Provider Source Oct 09, 2024 09:41 AM PREVENTIVE MEDICIN E NURSING NOTE: LOCAL TITLE: CLINICAL REMINDERS/NURSING STANDARD TITLE: PREVENTIVE MEDICINE NURSING NOTE DATE OF NOTE: OCT 09, 2024@09:41 ENTRY DATE: OCT 09, 2024@09:41:29 AUTHOR: CARRIE SCHULZ COSIGNER: URGENCY: STATUS: COMPLETED Suicide Screen: C-SSRS Screening [place] Suicide Severity Rating Scale (C-SSRS) screener 1. Over the past month, have you wished you were or wished you could go to sleep and not wake up? No 2. Over the past month, have you had any actual thoughts of killing yourself? No 3. Over the past month, have you been thinking about how you might do this? Response not required due to responses to other questions. 4. Over the past month, have you had these thoughts and had some intention of acting on them? Response not required due to responses to other questions. 5. Over the past month, have you started to work out or worked out the details of how to kill yourself? Response not required due to responses to other questions. 6. If yes, at any time in the past month did you intend to carry out this plan? Response not required due to responses to other questions. 7. In your lifetime, have you ever done anything, started to do anything, or prepared to do anything to end your life (for example, collected pills, obtained a gun, gave away valuables, went to the roof but didn't jump)? No 8. If YES, was this within the past 3 months? Response not required due to responses to other questions. Homelessness/Food Insecurity Screen: In the past 2 months, have you been living in stable housing that you own, rent, or stay in as part of a household? Yes - Living in stable housing. Are you worried or concerned that in the next 2 months you may NOT have stable housing that you own, rent, or stay in as part of a household? No - Not worried about housing near future The reports the following: Within the past 12 months, you worried whether your food would run out before you got money to buy more. Never true Within the past 12 months, the food you bought just didn't last and you didn't have money to get more. Never true Depression Screening: Perform PHQ-2 A PHQ-2 screen was performed. The score was 0 which is a negative screen for depression. Over the past two weeks, how often have you been bothered by the following problems? 1. Little interest or pleasure in doing things Not at all 2. Feeling down, depressed, or hopeless Not at all Tobacco Use Screening: The patient has never smoked cigarettes. The patient has never used other types of tobacco. Influenza Immunization: The patient has received the seasonal influenza vaccine for the current season at another location. Documented: INFLUENZA, UNSPECIFIED FORMULATION Historical Date Administered: Jun 2024 Exact date unknown Information Source: FROM PATIENT'S RECALL COVID-19 Immunization: Patient educated on the need for receiving COVID-19 (SARS-CoV-2) immunization either at [facility] or outside facility. Will schedule when ready. 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 Narr. - Glaucoma Suspect,Low Risk,Bilateral Action: No Referral Ordered: The patient declined/refused referral for Tele-Eye screening and Eye Clinic appointment. Comment: Will call [facility] when ready to schedule eye appointment. RSV Immunization: Respiratory Syncytial Virus (RSV) Vaccine: RSV vaccine administered today. Administered: RSV, RECOMBINANT, PROTEIN SUBUNIT RSVPREF3, ADJUVANT RECONSTITUTED, 0.5 ML, PF Date Administered: Oct 09, 2024 09:54 Material Control Clerk: Lavish Skate Lot: [id number] Exp Date: Jul 18, 2025 [facility]: [id number] Admin Route/Site: INTRAMUSCULAR/RIGHT DELTOID Dosage: .5mL Vaccine Information Statement(s): RSV (RESPIRATORY SYNCYTIAL VIRUS) VACCINE VIS Jul 10, 2024 ([facility]) Order By: Policy Administered By: Carrie Schulz Vaccine Information Sheet (VIS) was given to the patient/caregiver, education regarding adverse reactions was discussed, as well as barriers to learning, if any, were acknowledged. /lucas/ CARRIE SCHULZ LPN LPN Signed: 10/09/2024 09:55 CARRIE SCHULZ GIP[facility]
== END 2024-10-14 12:45 | disposition home or self-care (01) ==
LOC: HO.LAB 12:44
PROVIDERS: PCP Hospitalist; Visit Provider Urology
DX: N40.1 Benign prostatic hyperplasia with lower urinary tract symptoms (principal); N13.8 Other obstructive and reflux uropathy; Z12.5 Encounter for screening for malignant neoplasm of prostate
CPT/HCPCS: 36415; 84153

== ENCOUNTER → 2024-10-17 14:04 | Outpatient (BNVA) | payer OTHER, SELFPAY | PROVIDERS: PCP Hospitalist; Visit Provider Urology ==

== ENCOUNTER → 2025-05-18 07:50 | Outpatient (REF) | payer OTHER, SELFPAY ==
--- OUTSIDE RECORDS SUMMARY | 2025-02-13 07:30 | XMS_ITS | Encounter Summary ---
Author Name [facility] [place] Organization [facility] [place] Address [address] [place] [id number] Care Team Providers Care Campaign Developer Name Role Phone ZAHRAA MONACO Primary Care Provider Unavailabl e Insurance Providers: [...] Aldridge's Name Patient's Relationship to Policy Aldridge [facility] (WNR) MEDICARE ADVANTAGE [place] INDIV IDUAL - [place] Sep 24, 2022 [id number] [phone] JING MUNIZ RK [facility]IENT [facility] ([facility]) MEDIC[facility] ADVANTAGE [place] INDIV IDUAL - CONN Sep 24, 2022 [id number] [phone] JING MUNIZ RK PATIENT Selected Encounter This section includes the information on record at [place] for the Encounter. Date/Time Encounter Type Encounter Description Reason Provider Source February 13, 2025 11:30 AM OFFICE O/P EST HI 40 [facility] - IND ICD-10-CM F41.9 Anxiety disorder, unspecified GRAEC SPENCER Encounter Template Text not used by [facility] Assessments - Encounter Diagnoses This section includes the primary and secondary diagnoses documented for the Encounter. Date/Time Primary/Secondary Diagnosis Diagnosis Name Provider Source February 13, 2025 06:31 PM PRIMARY Anxiety disorder, unspecified JOHANNAMARCELA G [place] February 13, 2025 06:31 PM SECONDARY Depression, unspecified MARCELA SPENCER Lul SHAHBAZ Plan of Treatment: Future Appointments (+ 6 months) and Future Tests (+/- 45 days) The Plan of Treatment section includes future care activities for the patient [facility] [place] [facility] [place] This section includes future appointments and future orders which are active, pending or scheduled. Future Appointments This section includes appointments that were scheduled to occur 6 months from the date of the Encounter, up to a maximum of 20 appointments. The data comes from all [place] treatment facilities. Appointment Date/Time Appointment Type Appointme nt Facility Name Feb 26, 2025 10:00 AM [facility] [place] [facility] Mar 04, 2025 11:00 AM [facility]ONE [place] [facility] Mar 05, 2025 11:30 AM AM[facility]ULATORY - MEDICINE [facility] Apr 06, 2025 03:00 PM AMBULATORY - PSYCHIATRY [facility] May 18, 2025 08:00 AM [facility] [place] [facility] May 28, 2025 03:00 PM AMBULATORY - PSYCHIATRY [facility] Jun 01, 2025 11:00 AM [facility] Lab Results: +/- 30 days of the [...] Type Result - Unit Interpretation Reference Range Specimen Type Comment Mar 02, 2025 11:22 AM [place] LIPID PANEL, NON FASTING SERUM Specim en Type: SERUM No comment entered. Ordering Provider: AMEE PHILLIPS Report Released Date/Time: Feb 25, 2025 04:01 PM Reporting Lab: [address] [address] Performing Lab: [address] [address] CHOLESTEROL 189 mg/dL TRIGLYCERIDE 62 mg/dL 0-150 LDL calculated 99 mg/dL 0-129 CHOL/HDL 2.4 HDL CHOLESTEROL 78 mg/dL >40 Mar 02, 2025 11:22 AM [place] LIVER FUNCTION SERUM Specimen Type: SERUM No comment entered. Ordering Provider: AMEE PHILLIPS Report Released Date/Time: Feb 25, 2025 04:01 PM Reporting Lab: [address] [address] Performing Lab: [address] [address] PROTEIN,TOTAL 6.7 g/dL 6.4-8.3 ALBUMIN 4.9 g/dL H 3.2-4.6 ALKALINE PHOSPHATASE 57 U/L 40-150 AST 30 U/L 5-34 ALT 39 U/L 0-55 BILIRUBIN, TOTAL 0.5 mg/dL 0.2-1.2 Mar 02, 2025 11:22 AM [place] BASIC METABOLIC PANEL (non-fasting) SERUM Specimen Type: SERUM No comment entered. Ordering Provider: AMEE PHILLIPS Report Released Date/Time: Feb 25, 2025 04:01 PM Reporting Lab: [address] [address] Performing Lab: [address] [address] UREA NITROGEN 17 mg/dL 8-26 GLUCOSE 85 mg/dL 65-100 SODIUM 138 mmol/L 136-145 POTASSIUM 4.5 mmol/L 3.5-5.1 CHLORIDE 103 mmol/L 98-107 CO2 30 meq/L 23-31 CALCIUM 9.3 mg/dL 8.8-10 CREATININE, Serum 0.90 mg/dL 0.72-1.25 eGFR(CKD-EPI 2020) >90 mL/min >60 Mar 02, 2025 11:22 AM [place] HEMOGLOBIN A1C PANEL BLOOD Specimen T ype: BLOOD Comment: Values obtained from A1C measurements can vary. For atypical A1C assays, a reported value of 7.0 could actually be between 6.72 and 7.28 if measured by a reference method. A reported value of 9.0 could actually be between 8.73 and 9.27. Ref: http://www.ngsp.org/CAPdata.asp Ordering Provider: PHILLIPS,ERIC Report Released Date/Time: Feb 25, 2025 04:01 PM Reporting [facility]: [facility] [address] [address] Performing Lab: [facility] [address] HEMOGLOBIN A1C 4.9 4.0-5.6 Mar 02, 2025 11:22 AM [place] TSH SERUM Sp ecimen Type: SERUM No comment entered. Ordering Provider: AMEE PHILLIPS Report Released Date/Time: Feb 25, 2025 04:01 PM Reporting [facility]: [facility] [address] [address] Performing [facility]: [facility] [address] [address] TSH 1.34 u[IU]/mL 0.35-4.94 Mar 02, 2025 11:22 AM [place] VITAMIN D (25-OH) SERUM Specimen Type: SERUM No comment entered. Ordering Provider: AMEE PHILLIPS Report Released Date/Time: Feb 25, 2025 04:01 PM Reporting Lab: [facility] [address] [address] [facility]forming [facility]: [facility] [address] [address] VITAMIN D (25-OH) 40.6 ng/mL 20-50 Mar 02, 2025 11:22 AM [place] CBC AND DIFF (AUTO) BLOOD Specimen Ty pe: BLOOD No comment entered. Ordering Provider: AMEE PHILLIPS Report Released Date/Time: Feb 25, 2025 04:01 PM Reporting [facility]: [facility] [address] [address] Performing [facility]: [facility] [address] [address] WBC 6.96 10*3/uL 4.50-11.00 RBC 4.85 10*6/uL 4.23-5.66 HGB 15.2 g/dL 12.8-17 HCT 44.6 39.2-50.4 MCV 92.0 fL 82-99 MCHC 34.1 g/dL 30.8-35.1 PLT 259 10*3/uL 140-360 MPV 10.8 fL 9.2-12.4 RDW-CV 12.3 12.0-16.0 MONO, ABS 0.81 10*3/uL 0.30-1.10 MCH 31.3 pg 26.2-32.6 NEUT % 63.1 43.7-75.8 LYMPH % 23.3 14.0-42.3 MONO % 11.6 5.1-13.7 EOS % 1.3 0.4-6.8 BASO % 0.3 0.1-2.0 NEUT, ABS 4.39 10*3/uL 2.20-7.60 LYMPH, ABS 1.62 10*3/uL 1.00-3.20 EOS, ABS 0.09 10*3/uL 0.03-0.44 BASO, ABS 0.02 10*3/uL 0.01-0.13 IMMATURE GRAN % 0.4 0.0-0.7 IMMATURE GRAN, ABS 0.03 10*3/uL 0.00-0.0 6 NRBC % 0.0 0.0-0.0 NRBC, ABS 0.00 10*3/uL 0.00-0.00 February 13, 2025 01:12 PM [place] DRUGS OF ABUSE URINE Specimen Type: URINE Comment: Urine with Cr [...] 10 and 11 may have been adulterated. Confirmation not sent by lab. Ordering Provider: MARCELA SPENCER Report Released Date/Time: February 13, 2025 12:29 PM Reporting Lab: [address] [address] Performing Lab: [address] [address] AMPHETAMINES SCREEN NONE-DETECTED None-D etected, Cutoff = 1000 ng/mL BENZODIAZEPINES SCREEN NONE-DETECTED Non e-Detected, Cutoff = 200 ng/mL COCAINE SCREEN NONE-DETECTED None-Detect ed,Cutoff = 300 ng/mL OPIATES SCREEN NONE-DETECTED None-Detect ed, Cutoff = 300 ng/mL CANNABINOIDS SCREEN POSITIVE HH None-Detect ed,Cutoff = 50 ng/mL BARBITURATES SCREEN NONE-DETECTED None-D etected,Cutoff = 200 ng/mL OXYCODONE SCREEN NONE-DETECTED None-Dete cted, Cutoff = 100 ng/mL BUPRENORPHINE SCREEN NONE-DETECTED None Detected, Cutoff = 5 ng/mL ALCOHOL, ETHYL URINE NONE-DETECTED None- Detected, cutoff = 10 mg/dL FENTANYL SCREEN NONE-DETECTED None-Detec nayan, Cutoff = 1.00 ng/mL PH, ALTAGRACIA 4.0 [pH] L 5.0-8.0 CREATININE, ALTAGRACIA 59.38 mg/dL L 63-166 SP.GRAVITY, ALTAGRACIA 1.016 1.005-1.030 METHADONE SCREEN NONE-DETECTED None-Dete cted,Cutoff = 300 ng/mL ETHYL GLUCURONIDE SCREEN NONE-DETECTED N one-Detected, cutoff = 500 ng/mL Social History: Smoking Status (Most current) and [...] place. Date/Time Current Smoking Status Comment Cruzito barone Jun 27, 2023 10:30 AM VA-TOBACCO FORMER USER [place] Tobacco Use History This section includes a history of the smoking, or tobacco-related health factors, that were collected on or before the date of the Encounter. The data comes from the [place] facility where the Encounter took place. Date/Time Smoking Status/Tobacco Use Comment F aclisa Jun 27, 2023 10:30 AM VA-TOBACCO QUIT 15 YRS OR MORE [place] Apr 28, 2022 11:00 AM VA-TOBACCO FORMER USER [place] Apr 28, 2022 11:00 AM VA-TOBACCO QUIT 15 YRS OR MORE [place] February 14, 2021 11:30 AM VA-TOBACCO FORMER USER [place] February 14, 2021 11:30 AM VA-TOBACCO QUIT 5 TO < 15 YRS [place] Jan 16, 2019 11:56 AM VA-TOBACCO FORMER USER [place] Jan 16, 2019 11:56 AM VA-TOBACCO QUIT 5 TO < 15 YRS [place] January 29, 2018 09:04 AM QUIT TOBACCO USE > 7 YEARS AGO [place] February 15, 2017 11:10 AM QUIT TOBACCO USE > 7 YEARS AGO Pt. states he quit smoking more than 20 years. [place] Encounter Notes: All associated encounter notes This section contains the clinical notes associated to the Encounter. Date/Time Encounter Note(s) Provider Source Feb 26, 2025 10:05 AM ADDENDUM: LOCAL TITLE: Addendum STANDARD TITLE: ADDENDUM DATE OF NOTE: FEB 26, 2025@10:05:51 ENTRY DATE: FEB 26, 2025@10:05:51 AUTHOR: LONDON SANTOS EXP COSIGNER: URGENCY: STATUS: COMPLETED EKG completed on 02/26/25. NOrmal sinus rhythm Septal infarct, age undetermined Abnormal ECG Vent rate 64 bmp PA interval 134 ms QRS duration 88 ms QT/QTc-Baz 402/414 ms P-R-T axes 79 28 52 Compare form prior on 10/04/22 Normal sinus rhythm Normal ECG Vent rate 71 bmp PA interval 130 ms QRS duration 84 ms QT/QTc-Baz 384/417 ms P-R-T axes 80 31 56 /lucas/ LONDON SANTOS LPN PACT 10 Signed: 02/26/2025 10:11 Receipt Acknowledged By: 02/26/2025 22:09 /es/ MARCELA SPENCER MD STAFF PSYCHIATRIST --- Original Document --- 02/13/25 PSYCHIATRY NOTE: Total time for encounter 45 minutes, including chart review, interview, charting chart reviewed Pt stable. Mood generally good, depression improved. Anxiety fluctuates. He does try to use relaxation strategies to manage anxiety when possible. But he still finds occ prn low dose klonopin helpful. He denies SI and violent ideation. No psychotic symptoms. Well organized. No paranoid or delusional content presented. Speech normal. Future oriented. Cognitive exam grossly intact/unchanged from last appt. Has interests, stays active. 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 Sleep ok w medication (remeron). The patient reports good response to current psychiatric medications, last increase in bupropion helpful - continue current psycch meds for now. Again, he requests to have a small [...] reported limited recreational use in college Patient - supportive as noted in past notes, pt denies h/o hypomania; denies h/o psych hospitalizations; denies suicide attempts or violence; denies h/o tbi; reports traumatic events in childhood -- of sister in childhood wt 168 lb today in clinic 01/2025 Active problems - Computerized Problem List is the source for the followin. Vitamin D Deficiency ([facility] [id number]) 2. HTN-Hypertension ([facility] [id number]) 3. Spasm of back muscles 4. Cervical pain 5. Hyperandrogenism 6. Alcohol intake above recommended sensible limits 7. Peyronies disease 8. BPH - benign prostatic hyperplasia 9. Long-term current use of cannabis 10. Inflamed seborrheic keratosis 11. Ex-cigarette smoker 12. Colonoscopy normal 13. Sinus bradycardia 14. Carpal tunnel 15. Family history of prostate cancer 16. Osteoarthritis (SNOMED CT 808281616) 17. Spinal stenosis in cervical region (SNOMED CT 45911293) 18. Major depression in partial remission (SNOMED CT 06012854) 19. Anxiety disorder (SNOMED CT 121998023) 20. Pain in limb Active Outpatient Medications (including Supplies): Active Outpatient Medications Status 1) BUPROPION 150MG 24HR XL TAB (ONCE DAILY) TAKE ONE TABLET BY ACTIVE MOUTH ONCE DAILY (IN ADDITION TO THE 300MG TABLETS, FOR TOTAL 450MG DAILY) Indication: MOOD 2) BUPROPION HCL 300MG 24HR SA TAB TAKE ONE TABLET BY MOUTH ACTIVE ONCE DAILY 3) BUSPIRONE HCL 10MG TAB TAKE TWO TABLETS BY MOUTH TWICE DAILY ACTIVE Indication: FOR ANXIETY 4) CHOLECALCIF 25MCG (D3-1,000UNIT) TAB TAKE ONE TABLET BY ACTIVE MOUTH ONCE DAILY FOR VITAMIN SUPPLEMENTATION Indication: FOR VITAMIN D DEFICIENCY 5) CLONAZEPAM 0.5MG TAB TAKE ONE-HALF TABLET BY MOUTH EVERY 24 ACTIVE HOURS NEEDED Indication: ANXIETY 6) LOSARTAN 50MG TAB TAKE ONE TABLET BY MOUTH ONCE DAILY FOR ACTIVE BLOOD PRESSURE/HEART Indication: FOR HIGH BLOOD PRESSURE 7) MIRTAZAPINE 30MG TAB TAKE ONE-HALF TABLET BY MOUTH AT HOLD BEDTIME FOR /MOOD Indication: DEPRESSION 8) SIMVASTATIN 40MG TAB TAKE ONE-HALF TABLET BY MOUTH ONCE ACTIVE DAILY FOR CHOLESTEROL Indication: FOR HIGH CHOLESTEROL Active Non-VA Medications Status 1) Non-VA CYANOCOBALAMIN 1000MCG TAB 1000MCG BY MOUTH ONCE ACTIVE DAILY 2) Non-VA MELATONIN 5MG CAP/TAB 10MG BY MOUTH ONCE DAILY ACTIVE 10 Total Medications PAST PSYCH MED HX: partial zoloft -- helped -- then stopped helping -- now helping buspar -- helped -- now helping celexa remeron klonopin stimulant -- 05/2016 to 02/2017 from [facility] -- dextroamphetamine w good response paxil -- anxiety gabapentin wellbutrin -- in past alone but not in combination w another antidepr cymbalta -- ? prior trial melatonin -- not help IMP: dsm-5 Major depression -- improved Unspecified anxiety disorder ADHD -by hx-dx as an adult (not dx in childhood) - previous testing did not support dx, but see templated tool below Chronic pain -- neck and back pain, DJD amd CTS Sleep apnea -- has cpap PTSD (from of sister in childhood) Alcohol abuse, by hx -- pt denies this, reports limited use Mild neurocognitive disorder Cannabis use do -- has medical marijuana card PLAN: Careful risk assessment performed. See C-SSRS 12/2024 - same today The pt is probably [...] feel he needs MAT for h/o AUD. Encourage pt to minimize/abstain from alcohol use The patient wanted to consider further tx for possible ADHD beyond bupropion, thus decided to do templated ADHD diagnostic tool. See below. Patient will also get UDS and get EKG. Even though marijuana impairs concentration, as I have reviewed with the patient regularly, patient states he is cut marijuana dose significantly but with ongoing attention difficulties, thus it is reasonable to review considering stimulant therapy, and I will seek consultation from colleague about this CONTINUE REMERON 15 MG NIGHTLY for depression/anxiety/insomnia -the patient increased to this dose on his own, with benefit for sleep and he feels that it helps mood. Risk of weight gain and sedation reviewed again with patient. The patient feels the weight gain can be useful to him. CONTINUE BUPROPION XL 450 MG DAILY --increased last appointment helpful in terms of improving depression and to further help with with attention and concentration --I reviewed side effect profile. I previously reviewed with patient that Wellbutrin can increase seizure risk by lowering seizure threshold, but this is probably a low risk, patient denied any history of seizures. CONTINUE BUSPAR 20 MG TWICE DAILY for anxiety and to augment antidepressants. Good response. Patient may want to try tapering down at a future appointment to see if he still needs this, but he does not want to change today As noted in previous notes-- the patient again requests to continue to [...] the side effect profile of the benzodiazepine, See my prior notes see repeat neuro psych testing -- this did not support dx of adhd, but pt would like to discuss this further I instructed the patient to return to clinic in about 2 to 4 weeks after getting UDS and EKG and after I consult with my colleague about consideration of treatment for possible ADHD, despite patient using marijuana regularly (although patient reports decreasing significantly). I encouraged the patient to call or [...] -- pt does not feel he needs this. I again reviewed with the patient that marijuana can affect attention and functioning. Encourage pt to minimize/abstain from cannabis use He previously reported alpha stim for anxiety [...] whether with a VA or non-VA provider. Brief Attention Deficit/Hyperactivity Disorder (ADHD) Identification Tool (BAIT) The reports that symptoms of inattention, hyperactivity and/or impulsivity were present prior to age [age] years old. The reports that symptoms interfere with, or reduce quality of, social, academic, or occupational functioning. Adult ADHD Self-Report Scale (ASRS) ASRS-Screening Scale score = 17 The total score range is between 0 and 25. A score of 14 or higher is considered clinically significant, including the need for additional assessment. This test is intended for use as a screening tool only and should not be used in isolation to diagnose ADHD without additional supporting evidence such as collateral information, academic/occupational records, and a thorough psychosocial history. For the purpose of diagnosing ADHD, cognitive testing has decreased reliability and validity and is not required for diagnosis and treatment. 1. How often do you have difficulty concentrating on what people say to you, even when they are speaking to you directly? Often 2. How often do you leave your seat in meetings or other situations in which you are expected to remain seated? Rarely 3. How often do you have difficulty unwinding and relaxing when you have time to yourself? Very Often 4. When you're in a conversation, how often do you find yourself finishing the sentences of the people you are talking to before they can finish them themselves? Sometimes 5. How often do you put things off until the last minute? Often 6. How often do you depend on others to keep your life in order and attend to details? Often BAIT Results BAIT results suggestive of ADHD. Further assessment indicated. Focused Attention-Deficit/Hyperactivity Disorder (ADHD) Diagnostic Tool ADHD History The patient has a prior diagnosis of ADHD. At age: in his early 60's -- by a child psychiatrist outside [place] The last provider visit for ADHD diagnosis or treatment was to a [place] provider. Current treatment for ADHD --prescribed bupropion at this [place] which helps attention partially Pharmacotherapy Prescribed by [place] Provider medication name, dose, frequency: bupropion helps attn partially None Past medication trial(s) for ADHD: adderall when the patient and his early 60's with reported benefit, and bupropion currently with partial benefit A rating scale or tool was used to inform the screening or diagnostic process. The scale that was used is: Adult ADHD Self-Report Scale (ASRS) Brief ADHD Identification Tool (BAIT) DSM-5-TR Criteria for ADHD Criteria A: ADHD Specific Symptoms Has the endorsed the following DSM-5-TR ADHD symptoms, for at least 6 months? The following inattention symptoms have been present for at least 6 months: OFTEN fails to give close attention to details or makes careless mistakes in schoolwork, at work, or during other activities. OFTEN has difficulty sustaining attention in tasks or play activities OFTEN does not seem to listen when spoken to directly OFTEN does not follow through on instructions, doesn't finish schoolwork, chores, or duties OFTEN has difficulty organizing tasks and activities OFTEN loses things necessary for tasks or activities Is OFTEN easily distracted by extraneous stimuli Patient has 5 or more inattention symptoms present for at least 6 months. The following hyperactivity and impulsivity symptoms have been present for at least 6 months: OFTEN unable to play or engage in leisure activities quietly Is OFTEN on the go, acting as if driven by a motor OFTEN talks excessively OFTEN blurts out an answer before a question has been completed OFTEN has difficulty waiting his or her turn OFTEN interrupts or intrudes on others Patient has 5 or more hyperactivity/impulsivity symptoms present for at least 6 months. Criteria B: Chronicity of ADHD Symptoms Several ADHD symptoms were present prior to age 11. Describe: The patient reports learning disability dx in 2nd grade and HS - but never given diagnosis of ADHD as child or adolescent - able to graduate from grad school education, good grades , but he had difficulty working to obtain good grades Criteria C: Contextual Stability of ADHD Symptoms Several ADHD symptoms are present in 2 or more settings. Describe: yes - home , and project outside home Criterion D: Clinically significant functional impairment from ADHD Symptoms There is clear evidence that the symptoms interfere with or reduce quality of functioning. Describe: difficulty finishing projects Criterion E: Rule-out alternative conditions and identify potentially comorbid diagnoses Symptoms do not occur exclusively during the course of schizophrenia or another psychotic disorder. Symptoms are may not better explained by another mental or medical disorder. Comment: This is a bit unclear, cannabis use does impair attention and may account for at least part of patient's inattention, however patient reports cutting down cannabis significantly and still has difficulty with attention ADHD Diagnosis ADHD is Diagnosed (probable, although diagnosis complicated by concurrent use of cannabis) Description of the ADHD Presentation Combined Type Description of Current ADHD Severity Moderate /es/ MARCELA SPENCER MD STAFF PSYCHIATRIST Signed: 02/13/2025 18:31 02/26/2025 ADDENDUM STATUS: UNSIGNED You may not VIEW this UNSIGNED Addendum. LONDON SANTOS SHAHBAZ February 13, 2025 11:35 AM PSYCHIATRY NOTE: LOCAL TITLE: PSYCHIATRY NOTE STANDARD TITLE: PSYCHIATRY NOTE DATE OF NOTE: FEBRUARY 13, 2025@11:35 ENTRY DATE: FEBRUARY 13, 2025@11:36:05 AUTHOR: MARCELA SPENCER EXP COSIGNER: URGENCY: STATUS: COMPLETED PSYCHIATRY NOTE Has ADDENDA Total time for encounter 45 minutes, including chart review, interview, charting chart reviewed Pt stable. Mood generally good, depression improved. Anxiety fluctuates. He does try to use relaxation strategies to manage anxiety when possible. But he still finds occ prn low dose klonopin helpful. He denies SI and violent ideation. No psychotic symptoms. Well organized. No paranoid or delusional content presented. Speech normal. Future oriented. Cognitive exam grossly intact/unchanged from last appt. Has interests, stays active. 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 Sleep ok w medication (remeron). The patient reports good response to current psychiatric medications, last increase in bupropion helpful - continue current psycch meds for now. Again, he requests to have a small [...] reported limited recreational use in college Patient - supportive as noted in past notes, pt denies h/o hypomania; denies h/o psych hospitalizations; denies suicide attempts or violence; denies h/o tbi; reports traumatic events in childhood -- of sister in childhood wt 168 lb today in clinic 01/2025 Active problems - Computerized Problem List is the source for the followin. Vitamin D Deficiency ([facility] [id number]) 2. HTN-Hypertension ([facility] [id number]) 3. Spasm of back muscles 4. Cervical pain 5. Hyperandrogenism 6. Alcohol intake above recommended sensible limits 7. Peyronies disease 8. BPH - benign prostatic hyperplasia 9. Long-term current use of cannabis 10. Inflamed seborrheic keratosis 11. Ex-cigarette smoker 12. Colonoscopy normal 13. Sinus bradycardia 14. Carpal tunnel 15. Family history of prostate cancer 16. Osteoarthritis (SNOMED CT 222498661) 17. Spinal stenosis in cervical region (SNOMED CT 49356612) 18. Major depression in partial remission (SNOMED CT 99493285) 19. Anxiety disorder (SNOMED CT 005376449) 20. Pain in limb Active Outpatient Medications (including Supplies): Active Outpatient Medications Status 1) BUPROPION 150MG 24HR XL TAB (ONCE DAILY) TAKE ONE TABLET BY ACTIVE MOUTH ONCE DAILY (IN ADDITION TO THE 300MG TABLETS, FOR TOTAL 450MG DAILY) Indication: MOOD 2) BUPROPION HCL 300MG 24HR SA TAB TAKE ONE TABLET BY MOUTH ACTIVE ONCE DAILY 3) BUSPIRONE HCL 10MG TAB TAKE TWO TABLETS BY MOUTH TWICE DAILY ACTIVE Indication: FOR ANXIETY 4) CHOLECALCIF 25MCG (D3-1,000UNIT) TAB TAKE ONE TABLET BY ACTIVE MOUTH ONCE DAILY FOR VITAMIN SUPPLEMENTATION Indication: FOR VITAMIN D DEFICIENCY 5) CLONAZEPAM 0.5MG TAB TAKE ONE-HALF TABLET BY MOUTH EVERY 24 ACTIVE HOURS NEEDED Indication: ANXIETY 6) LOSARTAN 50MG TAB TAKE ONE TABLET BY MOUTH ONCE DAILY FOR ACTIVE BLOOD PRESSURE/HEART Indication: FOR HIGH BLOOD PRESSURE 7) MIRTAZAPINE 30MG TAB TAKE ONE-HALF TABLET BY MOUTH AT HOLD BEDTIME FOR /MOOD Indication: DEPRESSION 8) SIMVASTATIN 40MG TAB TAKE ONE-HALF TABLET BY MOUTH ONCE ACTIVE DAILY FOR CHOLESTEROL Indication: FOR HIGH CHOLESTEROL Active Non-VA Medications Status 1) Non-VA CYANOCOBALAMIN 1000MCG TAB 1000MCG BY MOUTH ONCE ACTIVE DAILY 2) Non-VA MELATONIN 5MG CAP/TAB 10MG BY MOUTH ONCE DAILY ACTIVE 10 Total Medications PAST PSYCH MED HX: partial zoloft -- helped -- then stopped helping -- now helping buspar -- helped -- now helping celexa remeron klonopin stimulant -- 05/2016 to 02/2017 from [facility] -- dextroamphetamine w good response paxil -- anxiety gabapentin wellbutrin -- in past alone but not in combination w another antidepr cymbalta -- ? prior trial melatonin -- not help IMP: dsm-5 Major depression -- improved Unspecified anxiety disorder ADHD -by hx-dx as an adult (not dx in childhood) - previous testing did not support dx, but see templated tool below Chronic pain -- neck and back pain, DJD amd CTS Sleep apnea -- has cpap PTSD (from of sister in childhood) Alcohol abuse, by hx -- pt denies this, reports limited use Mild neurocognitive disorder Cannabis use do -- has medical marijuana card PLAN: Careful risk assessment performed. See C-SSRS 12/2024 - same today The pt is probably low risk for suicide or violence -- the patient denied suicidal and violent ideation, but the [employer] [facility] information and number were reviewed [...] feel he needs MAT for h/o AUD. Encourage pt to minimize/abstain from alcohol use The patient wanted to consider further tx for possible ADHD beyond bupropion, thus decided to do templated ADHD diagnostic tool. See below. Patient will also get UDS and get EKG. Even though marijuana impairs concentration, as I have reviewed with the patient regularly, patient states he is cut marijuana dose significantly but with ongoing attention difficulties, thus it is reasonable to review considering stimulant therapy, and I will seek consultation from colleague about this CONTINUE REMERON 15 MG NIGHTLY for depression/anxiety/insomnia -the patient increased to this dose on his own, with benefit for sleep and he feels that it helps mood. Risk of weight gain and sedation reviewed again with patient. The patient feels the weight gain can be useful to him. CONTINUE BUPROPION XL 450 MG DAILY --increased last appointment helpful in terms of improving depression and to further help with with attention and concentration --I reviewed side effect profile. I previously reviewed with patient that Wellbutrin can increase seizure risk by lowering seizure threshold, but this is probably a low risk, patient denied any history of seizures. CONTINUE BUSPAR 20 MG TWICE DAILY for anxiety and to augment antidepressants. Good response. Patient may want to try tapering down at a future appointment to see if he still needs this, but he does not want to change today As noted in previous notes-- the patient again requests to continue to [...] the side effect profile of the benzodiazepine, See my prior notes see repeat neuro psych testing -- this did not support dx of adhd, but pt would like to discuss this further I instructed the patient to return to clinic in about 2 to 4 weeks after getting UDS and EKG and after I consult with my colleague about consideration of treatment for possible ADHD, despite patient using marijuana regularly (although patient reports decreasing significantly). I encouraged the patient to call or [...] -- pt does not feel he needs this. I again reviewed with the patient that marijuana can affect attention and functioning. Encourage pt to minimize/abstain from cannabis use He previously reported alpha stim for anxiety [...] whether with a [facility] or non-[facility] provider. Brief Attention Deficit/Hyperactivity Disorder (ADHD) Identification Tool (BAIT) [facility] reports that symptoms of inattention, hyperactivity and/or impulsivity were present prior to age [age] years old. [facility] reports that symptoms interfere with, or reduce quality of, social, academic, or occupational functioning. Adult ADHD Self-Report Scale (ASRS) ASRS-Screening Scale score = 17 The total score range is between 0 and 25. A score of 14 or higher is considered clinically significant, including the need for additional assessment. This test is intended for use as a screening tool only and should not be used in isolation to diagnose ADHD without additional supporting evidence such as collateral information, academic/occupational records, and a thorough psychosocial history. For the purpose of diagnosing ADHD, cognitive testing has decreased reliability and validity and is not required for diagnosis and treatment. 1. How often do you have difficulty concentrating on what people say to you, even when they are speaking to you directly? Often 2. How often do you leave your seat in meetings or other situations in which you are expected to remain seated? Rarely 3. How often do you have difficulty unwinding and relaxing when you have time to yourself? Very Often 4. When you're in a conversation, how often do you find yourself finishing the sentences of the people you are talking to before they can finish them themselves? Sometimes 5. How often do you put things off until the last minute? Often 6. How often do you depend on others to keep your life in order and attend to details? Often BAIT Results BAIT results suggestive of ADHD. Further assessment indicated. Focused Attention-Deficit/Hyperactivity Disorder (ADHD) Diagnostic Tool ADHD History The patient has a prior diagnosis of ADHD. At age: in his early 60's -- by a child psychiatrist outside [place] The last provider visit for ADHD diagnosis or treatment was to a [place] provider. Current treatment for ADHD --prescribed bupropion at this [place] which helps attention partially Pharmacotherapy Prescribed by [place] Provider medication name, dose, frequency: bupropion helps attn partially None Past medication trial(s) for ADHD: adderall when the patient and his early 60's with reported benefit, and bupropion currently with partial benefit A rating scale or tool was used to inform the screening or diagnostic process. The scale that was used is: Adult ADHD Self-Report Scale (ASRS) Brief ADHD Identification Tool (BAIT) DSM-5-TR Criteria for ADHD Criteria A: ADHD Specific Symptoms Has the endorsed the following DSM-5-TR ADHD symptoms, for at least 6 months? The following inattention symptoms have been present for at least 6 months: OFTEN fails to give close attention to details or makes careless mistakes in schoolwork, at work, or during other activities. OFTEN has difficulty sustaining attention in tasks or play activities OFTEN does not seem to listen when spoken to directly OFTEN does not follow through on instructions, doesn't finish schoolwork, chores, or duties OFTEN has difficulty organizing tasks and activities OFTEN loses things necessary for tasks or activities Is OFTEN easily distracted by extraneous stimuli Patient has 5 or more inattention symptoms present for at least 6 months. The following hyperactivity and impulsivity symptoms have been present for at least 6 months: OFTEN unable to play or engage in leisure activities quietly Is OFTEN on the go, acting as if driven by a motor OFTEN talks excessively OFTEN blurts out an answer before a question has been completed OFTEN has difficulty waiting his or her turn OFTEN interrupts or intrudes on others Patient has 5 or more hyperactivity/impulsivity symptoms present for at least 6 months. Criteria B: Chronicity of ADHD Symptoms Several ADHD symptoms were present prior to age 11. Describe: The patient reports learning disability dx in 2nd grade and HS - but never given diagnosis of ADHD as child or adolescent - able to graduate from grad school education, good grades , but he had difficulty working to obtain good grades Criteria C: Contextual Stability of ADHD Symptoms Several ADHD symptoms are present in 2 or more settings. Describe: yes - home , and project outside home Criterion D: Clinically significant functional impairment from ADHD Symptoms There is clear evidence that the symptoms interfere with or reduce quality of functioning. Describe: difficulty finishing projects Criterion E: Rule-out alternative conditions and identify potentially comorbid diagnoses Symptoms do not occur exclusively during the course of schizophrenia or another psychotic disorder. Symptoms are may not better explained by another mental or medical disorder. Comment: This is a bit unclear, cannabis use does impair attention and may account for at least part of patient's inattention, however patient reports cutting down cannabis significantly and still has difficulty with attention ADHD Diagnosis ADHD is Diagnosed (probable, although diagnosis complicated by concurrent use of cannabis) Description of the ADHD Presentation Combined Type Description of Current ADHD Severity Moderate /es/ MARCELA SPENCER MD STAFF PSYCHIATRIST Signed: 02/13/2025 18:31 02/26/2025 ADDENDUM STATUS: COMPLETED EKG completed on 02/26/25. NOrmal sinus rhythm Septal infarct, age undetermined Abnormal ECG Vent rate 64 bmp PA interval 134 ms QRS duration 88 ms QT/QTc-Baz 402/414 ms P-R-T axes 79 28 52 Compare form prior on 10/04/22 Normal sinus rhythm Normal ECG Vent rate 71 bmp PA interval 130 ms QRS duration 84 ms QT/QTc-Baz 384/417 ms P-R-T axes 80 31 56 /lucas/ LONDON SANTOS LPN PACT 10 Signed: 02/26/2025 10:11 Receipt Acknowledged By: 02/26/2025 22:09 /lucas/ MARCELA SPENCER MD STAFF PSYCHIATRIST 02/26/2025 ADDENDUM STATUS: COMPLETED I reviewed EKG with the patient's primary care Amee Phillips [employer] today, and he feels EKG essentially unchanged from 2022 and 2017 EKGs. I also reviewed EKG with pt today over phone - he denies any h/o cardiac sx's (but understands to get immediate medical attn if has cardiac sx's). Amee Phillips [employer] agrees that there are no cardiac contraindication to stimulant trial based upon the EKG /lucas/ MARCELA SPENCER MD STAFF PSYCHIATRIST Signed: 02/27/2025 08:22 MARCELA SPENCER
--- NOTE | 2025-05-18 07:55 | CA_ITS ---
Acquisition Time: 2025-05-18 08:03:19 Total Exercise Time: 00:05:01 Test Indications: Abnormal ECG,Palpitations Medications: BUPROPION CLONAZAPAM LOSARTAN SIMVASTATIN MIRTAZAPINE BUSPIRONE CYCLOBENZAPRINE Protocol: PUMA Max HR: 155 BPM 103% of Pred: 150 BPM Max BP: 144/80 mmHG Max Work Load: 6.9 METS Exercise stress test with exercise 5 mins 1 sec of Puma Protocol, achieving 103% MPHR, with reports of SOB, no chest pain, with isolated PACs and PVCs, with normotensive response to exercise. Without any EKG changes meeting criteria for ischemia. In recovery, breathing returned to baseline. Test reviewed with Dr. Gibbs. Referred By: Mandeep Phillips Electronically Signed By: Valentin Acosta
== END ==
LOC: HO.CARD 07:50
PROVIDERS: PCP Hospitalist; Visit Provider Hospitalist
DX: R00.2 Palpitations (principal); Z79.899 Other long term (current) drug therapy
CPT/HCPCS: 93017

== ENCOUNTER → 2025-05-18 07:55 | Outpatient (BNV) | payer OTHER, SELFPAY | PROVIDERS: PCP Hospitalist | DX: I49.1 Atrial premature depolarization (principal); I49.3 Ventricular premature depolarization; R06.02 Shortness of breath | CPT/HCPCS: 93016; 93018 ==